=== PATIENT | male | born 1945 | race Caucasian/White ===

== ENCOUNTER 2017-08-18 07:04 | Day surgery (SDC) | payer MEDICARE, BC ==
[~2017-08-18 07:04] MED LIST: Acetaminophen TAB* 325 MG PO PRN; Buffered Lidocaine 0.9% SYRIN* 5 ML/SYR SYRINGE INTRADERM ONE
[2017-08-18] MEDS ORDERED: fentaNYL* 50 MCG/ML 2 ML VIAL (100 MCG VIAL) ONE (08:28)
[2017-08-18] MEDS ORDERED: Midazolam* 1 MG/ML 2 ML VIAL (2 MG) ONE (08:28)
[2017-08-18] MEDS ORDERED: Metoprolol Tartrate IV* 1 MG/ML 5 ML VIAL ONE (08:48)
[2017-08-18 09:30] VITALS: BP 135/77
[2017-08-18] MEDS ORDERED: Povidone Iodine 5% OPTH* 30 ML BTL ONE (11:02)
[2017-08-18] MEDS ORDERED: Lidocaine 2% EPI 1:200000 MPF* 20 ML VIAL ONE (11:02)
[2017-08-18] MEDS ORDERED: Ketorolac 0.5% OPHTH (NF) 0.5 % 5 ML BTL ONE (11:02)
[2017-08-18] MEDS ORDERED: Cyclopentolate 1% OPTH.SOL* 2 ML BTL ONE (11:02)
[2017-08-18] MEDS ORDERED: Proparacaine 0.5% OPHTH.SOL* 15 ML BTL ONE (11:02)
[2017-08-18] MEDS ORDERED: Phenylephrine 2.5% OPTH.SOL* 2 ML BTL ONE (11:02)
[2017-08-18] MEDS ORDERED: acetaZOLAMIDE TAB* 250 MG ONE (11:02)
[2017-08-18] MEDS ORDERED: Neomycin/Polymy/Dex OPTH.SUSP* MAXITROL 0.1% 5 ML ONE (11:02)
[2017-08-18] MEDS ORDERED: Lidocaine 1% MPF* 2 ML VIAL ONE (11:02)
--- NOTE | 2017-08-18 22:18 | OP ---
DATE OF OPERATION: 08/18/17 [facility] DATE OF : [birth year] SURGEON: Parviz Goddard MD PREOPERATIVE DIAGNOSIS: Cataract, right eye. POSTOPERATIVE DIAGNOSIS: Cataract, right eye. OPERATIVE PROCEDURE: Extracapsular cataract extraction with intraocular lens and iStent, right eye. DESCRIPTION OF PROCEDURE: The patient was brought to the operating room after being given 1/2% Alcaine with epinephrine drops in the preoperative area. The eye was prepped and draped in the usual sterile fashion. Sterile drape and eyelid speculum were placed. Again, topical 1/2% Alcaine with epinephrine was given. A paracentesis incision was made at the 9 o'clock position with the No.75 blade. Clear cornea incision 2.2 x 2.2-mm was created at the 12 o'clock position starting at the anterior limbus using the 2.2-mm keratome. The anterior chamber was irrigated with 0.4 mL of 1% non-preservative intracameral lidocaine and filled with DisCoVisc. A capsulorrhexis was completed using the cystotome and the Utrata forceps. Hydrodissection was performed with balanced salt solution. The lens nucleus was removed with the Phacoemulsification handpiece without incident. Cortex was removed with the irrigation-aspiration handpiece. The capsular bag was re-inflated using DisCoVisc and an [id number] 25 implant was inserted with the shooter, followed by an iStent [id number] inserted into the trabecular mesh work at the 3 o'clock position with its shooter. The irrigation-aspiration handpiece was used to remove all residual DisCoVisc. The eye was refilled with balanced salt solution and the wound checked and found to be watertight. Topical Maxitrol drops were given. [id number]/[facility] #: [id number] MTDD
== END 2017-08-18 09:25 | disposition home or self-care (01) ==
LOC: OREAST 07:04
PROVIDERS: ATTEND Specialist
DX: H25.811 Combined forms of age-related cataract, right eye (principal); H40.1131 Primary open-angle glaucoma, bilateral, mild stage; Z87.891 Personal history of nicotine dependence; I25.10 Atherosclerotic heart disease of native coronary artery without angina pectoris; I25.2 Old myocardial infarction; I65.21 Occlusion and stenosis of right carotid artery
CPT/HCPCS: A9270-GY; C1783; J2250; J3010; J3490; V2632

== ENCOUNTER 2017-08-25 06:49 | Day surgery (SDC) | payer MEDICARE, BC ==
[2017-08-25] MEDS ORDERED: Midazolam* 1 MG/ML 2 ML VIAL (2 MG) ONE (07:14)
[2017-08-25] MEDS ORDERED: Neomycin/Polymy/Dex OPTH.SUSP* MAXITROL 0.1% 5 ML ONE (07:27)
[2017-08-25] MEDS ORDERED: Cyclopentolate 1% OPTH.SOL* 2 ML BTL ONE (07:27)
[2017-08-25] MEDS ORDERED: Phenylephrine 2.5% OPTH.SOL* 2 ML BTL ONE (07:27)
[2017-08-25] MEDS ORDERED: acetaZOLAMIDE TAB* 250 MG ONE (07:27)
[2017-08-25] MEDS ORDERED: Lidocaine 1% MPF* 2 ML VIAL ONE (07:27)
[2017-08-25] MEDS ORDERED: Povidone Iodine 5% OPTH* 30 ML BTL ONE (07:27)
[2017-08-25] MEDS ORDERED: Proparacaine 0.5% OPHTH.SOL* 15 ML BTL ONE (07:27)
[2017-08-25] MEDS ORDERED: Lidocaine 2% EPI 1:200000 MPF* 20 ML VIAL ONE (07:27)
[2017-08-25] MEDS ORDERED: Ketorolac 0.5% OPHTH (NF) 0.5 % 5 ML BTL ONE (07:27)
[2017-08-25 08:44] VITALS: BP 133/76
--- NOTE | 2017-08-25 12:46 | OP ---
DATE OF OPERATION: 08/25/2017 - [facility] DATE OF : 1945. SURGEON: Parviz Goddard M.D. PREOPERATIVE DIAGNOSIS: Cataract left eye. POSTOPERATIVE DIAGNOSIS: Cataract left eye. OPERATIVE PROCEDURE: Extracapsular cataract extraction with intraocular lens implant left eye and iStent. DESCRIPTION OF PROCEDURE: The patient was brought to the operating room after being given 1/2% Alcaine with epinephrine drops in the preoperative area. The eye was prepped and draped in the usual sterile fashion. Sterile drape and eyelid speculum were placed. Again, topical 1/2% Alcaine with epinephrine was given. A paracentesis incision was made at the 3 o'clock position with the No.75 blade. Clear cornea incision 2.2 x 2.2-mm was created at the 6 o'clock position starting at the anterior limbus using the 2.2-mm keratome. The anterior chamber was irrigated with 0.4 mL of 1% non-preservative intracameral lidocaine and filled with DisCoVisc. A capsulorrhexis was completed using the cystotome and the Utrata forceps. Hydrodissection was performed with balanced salt solution. The lens nucleus was removed with the Phacoemulsification handpiece without incident. Cortex was removed with the irrigation-aspiration handpiece. The capsular bag was re-inflated using DisCoVisc and an [id number] 24.5 implant was inserted with the shooter, followed by an iStent [id number] inserted into the trabecular meshwork with its shooter at the 9 o'clock position. The irrigation-aspiration handpiece was used to remove all residual DisCoVisc. The eye was refilled with balanced salt solution and the wound checked and found to be watertight. Topical Maxitrol drops were given. [id number]/[facility] #: [id number] [facility]ICAL CENTERChris
== END 2017-08-25 08:46 | disposition home or self-care (01) ==
LOC: OREAST 06:49
PROVIDERS: ATTEND Specialist
DX: H25.812 Combined forms of age-related cataract, left eye (principal); H40.1131 Primary open-angle glaucoma, bilateral, mild stage; Z87.891 Personal history of nicotine dependence; I42.9 Cardiomyopathy, unspecified; Z95.0 Presence of cardiac pacemaker; I10 Essential (primary) hypertension; R00.1 Bradycardia, unspecified; G47.30 Sleep apnea, unspecified
CPT/HCPCS: A9270-GY; C1783; J2250; V2632

== ENCOUNTER 2019-07-18 12:35 | Emergency (ER) | payer MEDICARE, BC ==
--- OUTSIDE RECORDS SUMMARY | 2019-07-18 12:48 | XMS REPORT | Continuity of Care Document ---
:1945 External Reference #:[id number] Author Name Parviz Goddard M.D. Address [address] [place] [address] Care Team Providers Name Role Phone Nomi Us M.D. - Care Team Information [employer] Wms Consultant [phone] Cardiovascular Disease Jasmin Krishnan MD - Internal Care Team Information [employer] Wms Consultant [phone] Medicine Problems Active Problems Provider Date Ocular hypertension Parviz Goddard M.D. Onset: 04/04/2015 Open angle with borderline findings Lobito De Los Santos M.D. Onset: 04/04/2015 Nuclear senile cataract Pk Kim M.D. Onset: 04/04/2015 Gastroesophageal reflux disease Onset: Arthritis Onset: Implantation of cardiac pacemaker Onset: Combined form of senile cataract Parviz Goddard M.D. Onset: 10/24/2015 Bilateral primary open angle glaucoma Parviz Goddard M.D. Onset: 04/30/2017 Presence of intraocular lens Parviz Goddard M.D. Onset: 08/19/2017 Tear film insufficiency Jade Carroll O.D. Onset: 09/08/2017 Epiretinal membrane Jade Carroll O.D. Onset: 09/08/2017 Social History Type Date Description Comments Sex Unknown ETOH Use Occasionally consumes beer Tobacco Use Start: Unknown End: Unknown Patient is a former smoker Recreational Drug Use Denies Drug Use Smoking Status Reviewed: 07/04/19 Patient is a former smoker Allergies, Adverse Reactions, Alerts Description No Known Drug Allergies Medications Active Medications SIG Qnty Indications Ordering Provider Date Artificial Tears as needed rarely Parviz Goddard, 07/03/2019 1.4% MTang Solution Aspir-[address] Multivitamins Unknown Capsules Torsemide Unknown 20mg Tablets Carvedilol Unknown 6.25mg Tablets Pravastatin Sodium Dakota Pro M.D. 40mg Tablets Spironolactone Unknown 25mg Tablets Immunizations Description No Information Available Vital Signs Date Vital Result Comment 06/14/2017 2:14pm BP Systolic 120 mmHg BP Diastolic 70 mmHg Heart Rate 68 /min Respiratory Rate 16 /min 06/07/2017 2:10pm BP Systolic 144 mmHg BP Diastolic 92 mmHg Heart Rate 63 /min Respiratory Rate 15 /min Results Description No Information Available Procedures Description No Information Available Medical Devices Description No Information Available Encounters Description No Information Available Assessments Date Code Description Provider 07/04/2019 H40.1131 Primary open-angle glaucoma, bilateral, Parviz Goddard M.D. mild stage 07/04/2019 Z96.1 Presence of intraocular lens Parviz Goddard M.D. 07/04/2019 H35.371 Puckering of macula, right eye Parviz Goddard M.D. Plan of Treatment 07/04/2019 - Parviz Goddard M.D.H40.1131 Primary open-angle glaucoma, bilateral, mild stageComments:Smoking can increase the risk of developing or worsening any eye related disease, as well as affect your overall health. If you are a smoker, we strongly recommend that you quit.If you are not a smoker, we strongly recommend that you do not start. Your glaucoma is stable at this time.Your eye pressure is within an acceptable range, and your testing does not show any further deterioration at this time. Please continue your treatment.Follow up:6 Month Follow Up DFE/IOP OCT ON Visual Field 30-2 You can expect to have your eyes dilated at yournext visit. If Dr. Goddard orders any additional testing, it may require extra time. We recommend thatyou bring sunglasses, as dilation drops often make you light sensitive until they wear off. We always recommend you bring someone to drive you home if you are uncomfortable driving with your eyes dilated. If you have any questions before your next visit, feel free to call our office at .z96.5 Presence of intraocular lensComments:The artificial lens implants in both eyes appear to be stable at this time.H35.371 Puckering of macula, right eye Functional Status Description No Information Available Mental Status Description No Information Available Referrals Description No Information Available
--- NOTE | 2019-07-18 13:51 | ED ---
Upper Extremity Pain - HPI Summary HPI Summary: The patient is a 74 y/o M presenting to [facility] accompanied by with a chief complaint of left shoulder pain after sustaining a fall onto the shoulder this morning. He reports that he was shoveling and slid but attempted to catch himself without success. He notes he continued to shovel following the accident. Currently, his symptoms are rated /10 in severity. The movement is aggravated with lifting the right arm causing decreased ROM and alleviated with rest and Ibuprofen. He denies head injury, LOC, or lower extremity pain. No anticoagulants. He sees Dr. Rodrigues from orthopedics for hip pain management with next appointment on 07/24/19. PMHx: CHF with pulmonary edema, CAD, HLD, HTN, pacemaker/defibrillator, resting tremors, rotator cuff repair on right. Former smoker, occasional EtOH, no substance use. Medications reviewed. Allergies noted. - History of Current Complaint Chief Complaint: EDExtremityUpper Stated Complaint: LEFT ARM INJURY PER PT Time Seen by Provider: 07/18/19 13:35 Hx Obtained From: Patient Mechanism Of Injury: Fall From A Standing Position Onset/Duration: Started Hours Ago, Still Present Timing: Constant Severity Initially: Moderate Severity Currently: Moderate Pain Location: Shoulder - left Character: Aching Aggravating Factor(s): Movement, Lifting Alleviating Factor(s): Rest, OTC Meds - Ibuprofen Associated Signs & Symptoms: Positive: Other - decreased ROM in left shoulder secondary to pain; Negative: lower extremity pain, head injury, LOC - Allergies/Home Medications Allergies/Adverse Reactions: Allergies Allergy/AdvReac Type Severity Reaction Status Date / Time No Known Allergies Allergy Verified 07/18/19 12:42 PMH/Surg Hx/FS Hx/Imm Hx Endocrine/Hematology History: Denies: Hx Diabetes Cardiovascular History: Reports: Hx Angina, Hx Congestive Heart Failure, Hx Coronary Artery Disease, Hx Hypertension, Hx Pacemaker/ICD, Hx Valvular Heart Disease - LASER SURGERY Respiratory History: Reports: Hx Pulmonary Edema - R/T CONGESTIVE HEART FAILURE GI History: Reports: Hx Gastroesophageal Reflux Disease - ON MEDS USES NEEDED , Other GI Disorders - DIVERTICULI WITH SURGERY History: Denies: Hx Renal Disease Musculoskeletal History: Reports: Hx Arthritis - HIPS SORE Sensory History: Reports: Hx Cataracts, Hx Contacts or Glasses Denies: Hx Hearing Aid Opthamlomology History: Reports: Hx Cataracts, Hx Contacts or Glasses Neurological History: Reports: Other Neuro Impairments/Disorders - FAMILIAR TREMORS BILAT HANDS Psychiatric History: Reports: Hx Anxiety - NONE RECENT, Hx Depression - R/T HEART PROBLEMS NO RECENT PROBLEMS - Surgical History Surgical History: Yes Surgery Procedure, Year, and Place: DIVERTICULITIS WITH RESECTION. EXPLORATORY LAPAROTOMY SMALL BOWEL OBSTRUCTION FROM ADHESIONS. AGE 14 YRS RIGHT HAND POINTER FINGER AMPUTATION. HEART SURGERY [address] [facility] [place]. 2014 PACER REPLACED AND DIFIBULATORY PLAC[address] [facility] [place] Hx Anesthesia Reactions: No - Immunization History Date of Tetanus Vaccine: Unk Date of Influenza Vaccine: None Infectious Disease History: No Infectious Disease History: Denies: Traveled Outside the [place] in Last 30 Days - Family History Known Family History: Negative: Cardiac Disease, Hypertension, Diabetes - Social History Alcohol Use: Rare Alcohol Amount: BEER Hx Substance Use: No Substance Use Type: Reports: None Hx Tobacco Use: Yes Smoking Status (MU): Former Smoker Amount Used/How Often: 20 YR HX 2/2 PPD Review of Systems Positive: Decreased ROM - left shoulder, Other - left shoulder pain; Negative: lower extremity pain Neurological: Other - Negative: head injury, LOC All Other Systems Reviewed And Are Negative: Yes Physical Exam - Summary Physical Exam Summary: Constitutional: Well-developed, Well-nourished, Alert. (-) Distressed Skin: Warm, Dry HENT: Normocephalic; Atraumatic Eyes: Conjunctiva normal Neck: Musculoskeletal ROM normal neck. (-) JVD, (-) Stridor, (-) Tracheal deviation Cardio: Rhythm regular, rate normal, Heart sounds normal; Intact distal pulses; Radial pulses are 2+ and symmetric. (-) Murmur Pulmonary/Chest wall: Effort normal. (-) Respiratory distress, (-) Wheezes, (-) Rales Abd: Soft, (-) tenderness, (-) Distension, (-) Guarding, (-) Rebound Musculoskeletal: No body tenderness or obvious deformity of the left shoulder, Patient has limited ROM in abduction, Radial pulse 2+. (-) Edema Lymph: (-) Cervical adenopathy Neuro: Alert, Oriented x3 Psych: Mood and affect Normal GCS: 15 Triage Information Reviewed: Yes Vital Signs On Initial Exam: Initial Vitals Temp Pulse Resp BP Pulse Ox 98.1 F 56 16 125/69 98 07/18/19 12:38 07/18/19 12:38 07/18/19 12:38 07/18/19 12:38 07/18/19 12:38 Vital Signs Reviewed: Yes - [place] Coma Scale Best Eye Response: 4 - Spontaneous Best Motor Response: 6 - Obeys Commands Best Verbal Response: 5 - Oriented Coma Scale Total: 15 Procedures - Sedation Patient Received Moderate/Deep Sedation with Procedure: No Diagnostics - Vital Signs Vital Signs Temp Pulse Resp BP Pulse Ox 07/18/19 12:38 98.1 F 56 16 125/69 98 - Laboratory Lab Statement: Any lab studies that have been ordered have been reviewed, and results considered in the medical decision making process. - Radiology L Shoulder XR Radiology Interpretation Completed By: Radiologist Summary of Radiographic Findings: Impression: 1. Negative for fracture. 2. Normal acromioclavicular and glenohumeral joint alignment. 3. Moderately severe osteoarthritis at the acromioclavicular joint and mild osteoarthritis at the glenohumeral joint. 4. Negative for calcific tendinopathy or abnormal soft tissue contour. ED physician has reviewed this imaging report. - CT Brain CT CT Interpretation Completed By: Radiologist Summary of CT Findings: Impression: No acute intracranial pathology. ED physician has reviewed this imaging report. Re-Evaluation - Re-Evaluation First Eval Re-Evaluation Time: 14:20 Comment: Patient reports to nurse that he is unsure how long he was on the ground and isn't sure if he had LOC but is now experiencing a HUBBARD, we will order Brain CT Second Eval Re-Evaluation Time: 14:55 Comment: We discussed all results and plan for discharge home. Course/Dx - Course Course Of Treatment: Patient is here with left shoulder pain falling a mechanical fall on snow. Patient initially said he did not lose consciousness but then changed his mind states he lost consciousness and hit his head. Patient had negative CT brain performed. Patient name x-ray of the left shoulder. Patient's symptoms are consistent with a rotator cuff injury. Patient was placed in a sling and will follow up with his orthopedic surgeon next week at his already scheduled appointment. - Diagnoses Provider Diagnoses: Injury of left shoulder, Fall Discharge ED - Sign-Out/Discharge Documenting (check all that apply): Patient Departure - Patient will be discharged home. - Discharge Plan Condition: Stable Disposition: HOME Patient Education Materials: Rotator Cuff Injury (ED), Shoulder Sprain (ED), Fall Prevention (ED) Referrals: Jasmin Krishnan MD [Primary Care Provider] - 3 Days Shae Rodrigues MD [Medical Doctor] - 07/24/19 Additional Instructions: Follow up with Dr. Rodrigues as you already have scheduled. Use sling as needed for comfort. Take Ibuprofen or Tylenol for pain. Return to the emergency department for any new or worsening symptoms. - Billing Disposition and Condition Condition: STABLE Disposition: Home - Attestation Statements Document Initiated by Rocco: Yes Documenting Scribe: Sunita De La Cruz Provider For Whom Rocco is Documenting (Include Credential): Dr. Soy Jay MD Scribe Attestation: Sunita Bowles scribed for Dr. Soy Jay MD on 07/18/19 at 1705. Scribe Documentation Reviewed: Yes Provider Attestation: The documentation as recorded by the Sunita gloria accurately reflects the service I personally performed and the decisions made by me, Dr. Soy Jay MD Status of Scribe Document: Viewed
[2019-07-18 15:30] VITALS: BP 122/76
== END 2019-07-18 15:28 | disposition home or self-care (01) ==
LOC: ED 12:35
DX: M25.512 Pain in left shoulder (principal); W00.9XXA Unspecified fall due to ice and snow, initial encounter; Y92.9 Unspecified place or not applicable; Z87.891 Personal history of nicotine dependence; I25.10 Atherosclerotic heart disease of native coronary artery without angina pectoris; Z95.0 Presence of cardiac pacemaker; F41.9 Anxiety disorder, unspecified; I50.9 Heart failure, unspecified
CPT/HCPCS: 70450; 99282

== ENCOUNTER 2019-09-29 08:04 | Inpatient (IN) | payer MEDICARE, BC ==
--- NOTE | 2019-09-26 10:18 | HP ---
AMENDED REPORT NOW INCLUDES DESIGNATED COSIGNER - ESIGNED BEFORE ADJUSTMENTS PREOPERATIVE HISTORY AND PHYSICAL: DATE OF SURGERY/ADMISSION: 09/29/19 DATE OF OFFICE VISIT/ENCOUNTER: 09/22/19 ATTENDING SURGEON: Shae Rodrigues MD * (DICTATED BY NURA GAMEZ) GEOTHERMAL POWERPLANT MECHANIC HELPER: Dr. Us. PROCEDURE: Right total hip arthroplasty. HISTORY OF PRESENT ILLNESS: Mr. 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 He has failed conservative treatment and has elected to proceed with a right total hip arthroplasty. He has been cleared by his flat sheet maker, Dr. Us, with a [id number] risk. The patient has not taken his ibuprofen since the first of the month, September. PAST MEDICAL HISTORY: 1. Hypercholesterolemia. 2. Hypertension. 3. History of arrhythmia. 4. History of diverticulitis. 5. Sleep apnea, no CPAP. 6. Essential tremor. PAST SURGICAL HISTORY: 1. Pacemaker placement. 2. Bowel surgery, a sigmoid resection. 3. Right rotator cuff repair. The patient reports experiencing hallucinations with anesthesia in the past. CURRENT MEDICATIONS: 1. Aspirin 81 mg daily. This has been on hold. 2. Carvedilol 6.25 mg 1 tab q.12 hours. 3. Colace 100 mg daily p.r.n. 4. Ibuprofen 200 mg, 400 to 600 mg every 6 hours. This has been on hold. 5. Multivitamin complete 1 tab daily, on hold. 6. Pravastatin sodium 40 mg daily. 7. Spironolactone 25 mg daily. 8. Torsemide 10 mg every other day. ALLERGIES: No known drug allergies. FAMILY MEDICAL HISTORY: Hypertension, cancer, Alzheimer's. SOCIAL HISTORY: The patient lives with his spouse. He is retired. He is a former smoker. He quit approximately 30 years ago. He denies recreational drug use. He drinks alcohol on rare occasion. REVIEW OF SYSTEMS: Positive for essential tremor. Otherwise, negative for general, cephalic, cardiovascular, respiratory, GI/, other musculoskeletal, integumentary, endocrine, other neurologic, and hematologic symptoms. Infectious disease: Negative for history of MRSA, hepatitis C, HIV. PHYSICAL EXAMINATION GENERAL: Well-developed, well-nourished 74-year-old male, in no acute distress. VITAL SIGNS: Height 5 feet 11 inches, weight 207 pounds. Pulse rate 80, blood pressure 120/78. HEENT: Normocephalic, atraumatic. Pupils are equal, round, and reactive to light and accommodation. Extraocular movements are intact. Throat is clear. NECK: Supple. No palpable lymph nodes. PULMONARY: Lungs are clear to auscultation bilaterally. No wheezes, rales, or rhonchi. CARDIOVASCULAR: Regular rate and rhythm. S1, S2. No murmurs, rubs, or gallops. ABDOMEN: Positive bowel sounds, soft, nontender. MUSCULOSKELETAL: On exam of the right lower extremity, skin is intact. There are no open wounds or abrasions. The patient ambulates with a mildly antalgic gait favoring the right hip. He has hip flexion to 90 degrees with 0 degrees of internal rotation, 20 degrees of external rotation with severe groin pain. Distally neurovascularly intact. He has a 5/5 ankle dorsiflexion and plantar flexion strength. Full sensation to light touch in all nerve distributions and 2+ palpable dorsalis pedis pulse. NEUROLOGIC: Alert and oriented x3. Cranial nerves II through XII are intact. Sensation is intact to light touch. IMAGING STUDIES: X-rays of the right hip show end-stage osteoarthritis. ASSESSMENT AND PLAN: Mr. Murray is a 74-year-old male with end-stage osteoarthritis of the right hip. He has failed conservative treatment and has elected to proceed with a right total hip arthroplasty. The surgery is scheduled for 09/29/[address] Rodrigues discussed the risks and benefits of the surgery at today's visit and all of his questions were answered. He will follow up with Dr. Rodrigues 2 weeks after surgery. NURA GAMEZ [id number]/[facility] #: [id number] TRACY
[~2019-09-29 08:04] MED LIST changes: -Acetaminophen TAB* 325 MG PO PRN; -Buffered Lidocaine 0.9% SYRIN* 5 ML/SYR SYRINGE INTRADERM ONE; +Buffered Lidocaine 1% SYRIN* 1 ML/SYRINGE INTRADERM ONE; +Dexamethasone TAB* 4 MG PO ONE; +DiMENhydriNATE IV* 50 MG/ML VIAL IV PUSH PRN; +Famotidine IV* 10 MG/ML 2 ML (20 mg) IV ONE; +HYDROmorphone INJ1* 1 MG/ML SYRINGE IV PRN; +Lactated Ringers 1000 ML Bag* 1,000 ML IV SCH; +Naloxone* 0.4 MG/ML 1 ML VIAL IV PRN; +Ondansetron ODT TAB* 4 MG PO ONE; +PROCHLORPERAZINE INJ 5 MG/ML 2 ML VIAL IV PRN; +Tranexamic Acid 1,000 MG in NS 0.9% 50 ML* (outpatient use) IV SCH; +oxyCODONE TAB* 5 MG TAB PO PRN
[2019-09-29] MEDS ORDERED: Ondansetron ODT TAB* 4 MG ONE (08:07)
[2019-09-29] MEDS ORDERED: Famotidine IV* 10 MG/ML 2 ML (20 mg) ONE (08:08)
[2019-09-29] MEDS ORDERED: ceFAZolin 2 GM in NS PREMIX(*) 2 GM/100 ML BAG IVPB ONE (08:08)
[2019-09-29] MEDS ORDERED: Dexamethasone TAB* 4 MG ONE (08:08)
--- OUTSIDE RECORDS SUMMARY | 2019-09-29 08:08 | XMS REPORT | Continuity of Care Document ---
:1945 External Reference #:[id number] Author Name Nomi Us M.D. 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 Onset: region and thigh Social History Type Date Description Comments Sex Unknown Tobacco Use Start: Unknown End: Former Cigarette Smoker Unknown Smoking Status Reviewed: 08/16/19 Former Cigarette Smoker ETOH Use Occasionally consumes alcohol Tobacco Use Start: Unknown End: Patient is a former Unknown smoker Recreational Drug Use Denies Drug Use Exercise Type/Frequency Exercises regularly walks 2 miles a day, then works out at the gym for 45 minutes Allergies, Adverse Reactions, Alerts Description No Known Drug Allergies Medications Active Medications SIG Qnty Indications Ordering Date Provider Torsemide 1 by mouth 90tabs I42.9 Nomi S. 08/17/2019 10mg Tablets every day Ana Us Carvedilol 1 tab by mouth 180tabs I42.9 Nomi S. 09/23/2015 6.25mg Tablets every 12 hours Ana Us Spironolactone take 1 tablet 90tabs I42.9 Qutayb S. 08/26/2015 25mg Tablets by mouth every Ana Us other day (alternating with spironolactone) Pravastatin Sodium 1 tablet daily Unknown 40mg at bedtime Tablets Aspir-Low 1 by mouth Unknown 81mg Tablets DR every day Multi Complete 1 PO daily Unknown Capsules Colace 1 by mouth Unknown 100mg Capsules daily prn Ibuprofen 200 400-600mg every Unknown 200mg Tablets 6 hours as needed for pain. History Medications Torsemide 1/2 by mouth every I42.9 Qutabanner S. 07/24/2019 - 20mg other day (opposite Ana Us 08/17/2019 Tablets of spirolactone) Torsemide 2 tablets by mouth 90tabs I42.9 Qutayb S. 03/08/2019 - 10mg every other day Ana Us 07/24/2019 Tablets (alternating with spironolactone) Immunizations Description No Information Available Vital Signs Date Vital Result Comment 09/01/2019 3:53pm Height 71 inches 5'11" Weight 206.00 lb per pt Heart Rate 76 /min left radial BP Systolic Sitting 134 mmHg Lue, reg cuff BP Diastolic Sitting 76 mmHg Lue, reg cuff BMI (Body Mass Index) 28.7 kg/m2 Ejection Fraction 30%-35% echocardiogram 08/25/18 08/16/2019 8:23am Height 71 inches 5'11" Weight 208.00 lb Heart Rate 88 /min BP Systolic 124 mmHg BP Diastolic 78 mmHg Respiratory Rate 18 /min Pain Level 5 BMI (Body Mass Index) 29.0 kg/m2 Results Description No Information Available Procedures Date Code Description Status 09/01/2019 79337 EKG Tracing & Interpretation Completed 07/24/2019 94955 Interrogation Device Eval Remote Up To 30 Days Completed Analysis,Rev,RP 07/24/2019 38167 Interrogation Device Eval Remote Up To 30 Days Completed Analysis,Rev,RP 07/24/2019 31987 Icd Eval Sing,Dual,Multi Lead Remote Recpt Transm Tech Completed Rev Tech S 07/24/2019 73973 Icd Eval Sing,Dual,Multi Lead Remote Recpt Transm Tech Completed Rev Tech S 07/24/2019 89270 Icd Check Remote Up To 90 Days Single,Dual,Multiple Completed Lead 07/24/2019 38422 Icd Check Remote Up To 90 Days Single,Dual,Multiple Completed Lead 06/08/2019 74630 Icd Eval With Iterative Adjustmt Multiple Lead System Completed 06/08/2019 56353 Interrogation Implant Cardiovasc Monitor System Incl Completed Analysis Int 05/16/2019 20076 EKG Tracing & Interpretation Completed 04/24/2019 89446 Interrogation Device Eval Remote Up To 30 Days Completed Analysis,Rev,RP 04/24/2019 74684 Interrogation Device Eval Remote Up To 30 Days Completed Analysis,Rev,RP 04/24/2019 77708 Icd Eval Sing,Dual,Multi Lead Remote Recpt Transm Tech Completed Rev Tech S 04/24/2019 73670 Icd Eval Sing,Dual,Multi Lead Remote Recpt Transm Tech Completed Rev Tech S 04/24/2019 46246 Icd Check Remote Up To 90 Days Single,Dual,Multiple Completed Lead 04/24/2019 01328 Icd Check Remote Up To 90 Days Single,Dual,Multiple Completed Lead 10/29/2015 [id number] Colonoscopy Completed Medical Devices Description No Information Available Encounters Type Date Location Provider Dx Diagnosis [facility] Visit [facility], M25.551 Pain in right hip 8:30a at [facility] M16.11 Unilateral primary osteoarthritis, right hip Office Visit 07/24/2019 1:00p [facility], M25.551 Pain in right at [facility] hip M16.11 Unilateral primary osteoarthritis, right hip Office Visit 05/16/2019 [facility] I42.9 Cardiomyopathy, 3:20p Cardiology Ana Us unspecified 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 09/01/2019 Z95.810 Presence of automatic (implantable) Nomi Us M.D. cardiac defibrillator 09/01/2019 I10 Essential (primary) hypertension Nomi Us M.D. 09/01/2019 E78.5 Hyperlipidemia, unspecified Nomi Us M.D. 09/01/2019 I77.819 Aortic ectasia, unspecified site Nomi Us M.D. 09/01/2019 Z01.810 Encounter for preprocedural Nomi Us M.D. cardiovascular examination 08/16/2019 M25.551 Pain in right hip Shae Rodrigues M.D. 08/16/2019 M16.11 Unilateral primary osteoarthritis, Shae Rodrigues M.D. right hip 07/24/2019 I42.9 Cardiomyopathy, unspecified Nomi Us M.D. 07/24/2019 M25.551 Pain in right hip Shae Rodrigues M.D. 07/24/2019 I42.9 Cardiomyopathy, unspecified Remote Device Checks 07/24/2019 Z95.810 Presence of automatic (implantable) Nomi Us M.D. cardiac defibrillator 07/24/2019 M16.11 Unilateral primary osteoarthritis, Shae Rodrigues M.D. right hip 07/24/2019 Z95.810 Presence of automatic (implantable) Remote Device Checks cardiac defibrillator 07/24/2019 I50.22 Chronic systolic (congestive) heart Nomi Us M.D. failure 07/24/2019 I50.22 Chronic systolic (congestive) heart Remote Device Checks failure 06/08/2019 I42.9 Cardiomyopathy, unspecified Nomi Us M.D. 06/08/2019 I42.9 Cardiomyopathy, unspecified Ica Pacer Schedule 06/08/2019 Z95.810 Presence of automatic (implantable) Nomi Us M.D. cardiac defibrillator 06/08/2019 Z95.810 Presence of automatic (implantable) Ica Pacer Schedule cardiac defibrillator 06/08/2019 I50.22 Chronic systolic (congestive) heart Nomi Us M.D. failure 06/08/2019 I50.22 Chronic systolic (congestive) heart Ica Pacer Schedule failure 05/16/2019 I42.9 Cardiomyopathy, unspecified Nomi Us M.D. 05/16/2019 Z95.810 Presence of automatic (implantable) Nomi Us M.D. cardiac defibrillator 05/16/2019 I10 Essential (primary) hypertension Nomi Us M.D. 05/16/2019 E78.5 Hyperlipidemia, unspecified Nomi Us M.D. 05/16/2019 I77.819 Aortic ectasia, unspecified site Nomi Us M.D. 04/24/2019 I42.9 Cardiomyopathy, unspecified Nomi Us M.D. 04/24/2019 I42.9 Cardiomyopathy, unspecified Remote Device Checks 04/24/2019 Z95.810 Presence of automatic (implantable) Nomi Us M.D. cardiac defibrillator 04/24/2019 Z95.810 Presence of automatic (implantable) Remote Device Checks cardiac defibrillator Plan of Treatment Future Appointment(s):09/15/2019 1:20 pm - Tarsha Morrison NP at [facility]09/08/2019 3:00 pm - Ica ECHO Schedule at [facility] 10:30 am - Shae Rodrigues M.D. at [facility] at [id number]/29/2019 10:30 am - Shae Rodrigues M.D. at [facility] at [id number]/01/2019 - Nomi Us M.D.I42.9 Cardiomyopathy, unspecifiedNew Orders: Echocardiogram, Ordered: 09/01/19Follow up:8 months ov with meZ95.810 Presence of automatic (implantable) cardiac [id number] Essential (primary) kwmmegkbnzyzE54.5 Hyperlipidemia, nhnmqeiihguL95.819 Aortic ectasia, unspecified siteZ01.810 Encounter for preprocedural cardiovascular examinationFollow up:ov PRESS HAND when echo is done for final clearance Functional Status Description No Information Available Mental Status Description No Information Available Referrals Description No Information Available
--- OUTSIDE RECORDS SUMMARY | 2019-09-29 08:08 | XMS REPORT | Continuity of Care Document ---
:1945 External Reference #:[id number] Author Name Shae Rodrigues M.D. 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 Onset: region and thigh Social History Type Date Description Comments Sex Unknown Tobacco Use Start: Unknown End: Former Cigarette Smoker Unknown Smoking Status Reviewed: 09/22/19 Former Cigarette Smoker ETOH Use Occasionally consumes [...] Provider Torsemide 1 by mouth 90tabs I42.9 Qutaybeh S. 08/17/2019 10mg Tablets every other day Ana Us Carvedilol 1 tab by mouth 180tabs I42.9 Qutaybeh S. 09/23/2015 6.25mg Tablets every 12 hours Ana Us Spironolactone take 1 tablet 90tabs I42.9 Tarsha Morrison, 08/26/2015 25mg Tablets by mouth every SOFTWARE ENGINEER ADVISOR day Pravastatin Sodium 1 tablet daily Unknown 40mg at bedtime Tablets Aspir-Low 1 by mouth Unknown 81mg Tablets DR every day (on hold) Multi Complete 1 PO daily (on Unknown Capsules hold) Colace 1 by mouth Unknown 100mg Capsules daily prn Ibuprofen 200 400-600mg every Unknown 200mg Tablets 6 hours as needed for pain. History Medications Torsemide 1/2 by mouth every I42.9 Qutaybeh S. 07/24/2019 - 20mg other day (opposite of Ana Us 08/17/2019 Tablets spirolactone) Immunizations Description No Information Available Vital Signs Date Vital Result Comment 09/22/2019 11:09am Height 71 inches 5'11" Weight 207.50 lb Heart Rate 80 /min BP Systolic 120 mmHg BP Diastolic 78 mmHg Respiratory Rate 18 /min Body Temperature 96.1 F Pain Level 5 BMI (Body Mass Index) 28.9 kg/m2 09/15/2019 12:52pm Height 71 inches 5'11" Weight 206.44 lb home weight Heart Rate 82 /min BP Systolic Sitting 134 mmHg ule reg cuff BP Diastolic Sitting 76 mmHg ule reg cuff BP Systolic Standing 136 mmHg ule reg cuff BP Diastolic Standing 76 mmHg ule reg cuff BMI (Body Mass Index) 28.8 kg/m2 Ejection Fraction 30-35% Echo 09/12/19 Results Test Acquired Date Facility Test Result H/L Range Note Basic Metabolic 09/15/2019 [facility] Sodium 139 mmol/L Normal 135-145 [address] [place] [address] [phone] Potassium 5.0 mmol/L Normal 3.5-5.0 Chloride 105 mmol/L Normal 101-111 Co2 Carbon Dioxide 29 mmol/L Normal 22-32 Anion Gap 5 mmol/L Normal 2-11 Glucose 94 mg/dL Normal 70-100 Blood Urea Nitrogen 25 mg/dL High 6-24 Creatinine 1.00 mg/dL Normal 0.67-1.17 BUN/Creatinine Ratio 25.0 High 8-20 Calcium 9.9 mg/dL Normal 8.6-10.3 Egfr Non- 73.5 >60 Egfr 88.9 >60 1 Laboratory test 09/15/2019 [facility] B-Type 302 pg/mL High <= [address] [place] [address] Peptide BNP [phone] 1 Because ethnic data is not always readily available, this report includes an eGFR for both -Americans and non- Americans. The National Kidney Disease Education Program (NKDEP) does not endorse the use of the MDRD equation for patients that are not between the ages of 18 and 70, are , have extremes of body size, muscle mass, or nutritional status, or are non- or non-. According to the National Kidney Foundation, irrespective of diagnosis, the stage of the disease is based on the level of kidney function: Stage Description GFR(mL/min/1.73 m(2)) 1 Kidney damage with normal or decreased GFR 90 2 Kidney damage with mild decrease in GFR 60-89 3 Moderate decrease in GFR 30-59 4 Severe decrease in GFR 15-29 5 Kidney failure <15 (or dialysis) Procedures Date Code Description Status 09/15/2019 71962 EKG Tracing & Interpretation Completed 09/12/2019 76441 ECHO Transthoracic, Real-Time 2D With Doppler And Color Completed Flow 09/01/2019 79463 EKG Tracing & Interpretation Completed 07/24/2019 84512 Interrogation Device Eval Remote Up To 30 Days Completed Analysis,Rev,RP 07/24/2019 84818 Interrogation Device Eval Remote Up To 30 Days Completed Analysis,Rev,RP 07/24/2019 23432 Icd Eval Sing,Dual,Multi Lead Remote Recpt Transm Tech Completed Rev Tech S 07/24/2019 40522 Icd Eval Sing,Dual,Multi Lead Remote Recpt Transm Tech Completed Rev Tech S 07/24/2019 61346 Icd Check Remote Up To 90 Days Single,Dual,Multiple Completed Lead 07/24/2019 35002 Icd Check Remote Up To 90 Days Single,Dual,Multiple Completed Lead 06/08/2019 73432 Icd Eval With Iterative Adjustmt Multiple Lead System Completed 06/08/2019 35118 Interrogation Implant Cardiovasc Monitor System Incl Completed Analysis Int 05/16/2019 00061 EKG Tracing & Interpretation Completed 04/24/2019 54058 Interrogation Device Eval Remote Up To 30 Days Completed Analysis,Rev,RP 04/24/2019 34076 Interrogation Device Eval Remote Up To 30 Days Completed Analysis,Rev,RP 04/24/2019 02231 Icd Eval Sing,Dual,Multi Lead Remote Recpt Transm Tech Completed Rev Tech S 04/24/2019 45773 Icd Eval Sing,Dual,Multi Lead Remote Recpt Transm Tech Completed Rev Tech S 04/24/2019 60889 Icd Check Remote Up To 90 Days Single,Dual,Multiple Completed Lead 04/24/2019 10893 Icd Check Remote Up To 90 Days Single,Dual,Multiple Completed Lead 10/29/2015 01704816 Colonoscopy Completed Medical Devices Description No Information Available Encounters Type Date Location Provider Dx Diagnosis Office Visit 09/15/2019 [facility] Tarsha Morrison, I42.9 Cardiomyopathy, 1:20p SOFTWARE ENGINEER ADVISOR unspecified I27.20 Pulmonary hypertension, unspecified Z95.0 Presence of cardiac pacemaker Z01.818 Encounter for other preprocedural examination Office Visit 09/01/2019 [facility] Nomi Gamez I42.9 Cardiomyopathy, 4:00p Cardiology Ana Us unspecified 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 09/22/2019 M16.11 Unilateral primary osteoarthritis, Shae Rodrigues M.D. right hip 09/15/2019 Z95.810 Presence of automatic (implantable) Nomi Us M.D. cardiac defibrillator 09/15/2019 I42.9 Cardiomyopathy, unspecified Tarsha Morrison, SOFTWARE ENGINEER ADVISOR 09/15/2019 I27.20 Pulmonary hypertension, unspecified Tarsha Thbarak, SOFTWARE ENGINEER ADVISOR 09/15/2019 Z95.0 Presence of cardiac pacemaker Tarsha Morrison SOFTWARE ENGINEER ADVISOR 09/15/2019 Z01.818 Encounter for other preprocedural Tarsha Morrison, SOFTWARE ENGINEER ADVISOR examination 09/12/2019 I42.9 Cardiomyopathy, unspecified [facility]ca ECHO Schedule 09/12/2019 Z95.810 Presence of automatic (implantable) Ica ECHO Schedule cardiac defibrillator 09/12/2019 I10 Essential (primary) hypertension Ica ECHO Schedule 09/12/2019 I77.819 Aortic ectasia, unspecified site Ica ECHO Schedule 09/01/2019 I42.9 Cardiomyopathy, unspecified Nomi Us M.D. [...] Checks 04/24/2019 Z95.810 Presence of automatic (implantable) oNmi Us M.D. cardiac defibrillator 04/24/2019 Z95.810 Presence of automatic (implantable) Remote Device Checks cardiac defibrillator Plan of Treatment Future Appointment(s):10/16/2019 10:15 am - Shae Rodrigues M.D. at [facility] at [id number]/02/2019 2:00 pm - Tarsha Morrison NP at [facility]09/29/2019 10:30 am - Shae Rodrigues M.D. at [facility] at [id number]/22/2019 - Shae Rodrigues M.D.M25.551 Pain in right hipFollow up:Follow up: 2 weeks after xzjhoqeS39.11 Unilateral primary osteoarthritis, right hip Functional Status Description No Information Available Mental Status Description No Information Available Referrals Description No Information Available
--- OUTSIDE RECORDS SUMMARY | 2019-09-29 08:08 | XMS REPORT | Continuity of Care Document ---
:1945 External Reference #:[id number] Author Name Shae Rodrigues M.D. 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 07/24/2019 20mg Tablets every other day Ana Us (opposite of spirolactone) Carvedilol 1 tab by mouth 180tabs I42.9 Qutaybeh S. 09/23/2015 6.25mg Tablets every 12 hours Ana Us Spironolactone take 1 tablet 90tabs I42.9 Qutaybeh S. 08/26/2015 25mg Tablets by mouth every Ana Us other day (alternating with spironolactone) Pravastatin Sodium 1 tablet daily Unknown 40mg at bedtime Tablets Aspir-Low 1 by mouth Unknown 81mg Tablets DR every day Multi Complete 1 PO daily Unknown Capsules Colace 1 by mouth Unknown 100mg Capsules daily prn History Medications Torsemide 2 tablets by mouth 90tabs I42.9 Qutaybeh S. 03/08/2019 - every other day Ana Us 07/24/2019 10mg Tablets (alternating with spironolactone) Immunizations Description No Information Available Vital Signs Date Vital Result Comment 08/16/2019 8:23am Height 71 inches 5'11" Weight 208.00 lb Heart Rate 88 /min BP Systolic 124 mmHg BP Diastolic 78 mmHg Respiratory Rate 18 /min Pain Level 5 BMI (Body Mass Index) 29.0 kg/m2 07/24/2019 1:37pm Height 71 inches 5'11" Weight 207.00 lb Heart Rate 65 /min BP Systolic 132 mmHg BP Diastolic 88 mmHg Respiratory Rate 18 /min Body Temperature 98.1 F BMI (Body Mass Index) 28.9 kg/m2 Results Description No Information Available Procedures Date Code Description Status 07/24/2019 56794 Interrogation Device Eval Remote Up To 30 Days Completed Analysis,Rev,RP 07/24/2019 82070 Interrogation Device Eval Remote Up To 30 Days Completed Analysis,Rev,RP 07/24/2019 15028 Icd Eval Sing,Dual,Multi Lead Remote Recpt Transm Tech Completed Rev Tech S 07/24/2019 51507 Icd Eval Sing,Dual,Multi Lead Remote Recpt Transm Tech Completed Rev Tech S 07/24/2019 82929 Icd Check Remote Up To 90 Days Single,Dual,Multiple Completed Lead 07/24/2019 88459 Icd Check Remote Up To 90 Days Single,Dual,Multiple Completed Lead 06/08/2019 49518 Interrogation Implant Cardiovasc Monitor System Incl Completed Analysis Int 06/08/2019 82506 Icd Eval With Iterative Adjustmt Multiple Lead System Completed 05/16/2019 48137 EKG Tracing & Interpretation Completed 04/24/2019 66436 Interrogation Device Eval Remote Up To 30 Days Completed Analysis,Rev,RP 04/24/2019 50247 Interrogation Device Eval Remote Up To 30 Days Completed Analysis,Rev,RP 04/24/2019 80985 Icd Eval Sing,Dual,Multi Lead Remote Recpt Transm Tech Completed Rev Tech S 04/24/2019 34638 Icd Eval Sing,Dual,Multi Lead Remote Recpt Transm Tech Completed Rev Tech S 04/24/2019 70796 Icd Check Remote Up To 90 Days Single,Dual,Multiple Completed Lead 04/24/2019 13837 Icd Check Remote Up To 90 Days Single,Dual,Multiple Completed Lead 10/29/2015 87961628 Colonoscopy Completed Medical Devices Description No Information Available Encounters Type Date Location Provider Dx Diagnosis Office Visit 07/24/2019 [facility] Shae Rodrigues, M25.551 Pain in right hip 1:00p at [place] Ana M16.11 Unilateral primary osteoarthritis, right hip Office Visit 05/16/2019 [facility] Nomi Gamez I42.9 Cardiomyopathy, 3:20p Cardiology Ana Us unspecified Z95.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
--- OUTSIDE RECORDS SUMMARY | 2019-09-29 08:08 | XMS REPORT | Continuity of Care Document ---
:1945 External Reference #:[id number] Author Name Tarsha Morrison NP (transmitted by agent of provider Franci Valdes) Address [address] [place], [place] [address] [address] Care Team Providers Name Role Phone Jasmin Krishnan MD - Internal Care Team Information [facility] [phone] Medicine Problems Active Problems Provider Date Disturbance in sleep behavior Emely Shaikh MD Onset: 01/03/2016 Cardiomyopathy, unspecified Emely Shaikh MD Onset: 01/03/2016 Morbid obesity Emely Shaikh MD Onset: 01/03/2016 Obstructive sleep apnea syndrome Emely Shaikh MD Onset: 03/17/2016 Localized, primary osteoarthritis of the pelvic Shaesharifa Rodrigues M.D. Onset: region and thigh Social History Type Date Description Comments Sex Unknown Tobacco Use Start: Unknown End: Former Cigarette Smoker Unknown Smoking Status Reviewed: 09/15/19 Former Cigarette Smoker ETOH Use Occasionally consumes [...] I42.9 Qutaybeh S. 08/17/2019 10mg Tablets every day Ana Us Carvedilol 1 tab by mouth 180tabs I42.9 Qutaybeh S. 09/23/2015 6.25mg Tablets every 12 hours Ana Us Spironolactone take 1 tablet 90tabs I42.9 Tarsha Morrison, 08/26/2015 25mg Tablets by mouth every EXPEDITION SUPERVISOR day Pravastatin Sodium 1 tablet daily Unknown [...] Available Vital Signs Date Vital Result Comment 09/15/2019 12:52pm Height 71 inches 5'11" Weight 206.44 lb home weight Heart Rate 82 /min BP Systolic Sitting 134 mmHg ule reg cuff BP Diastolic Sitting 76 mmHg ule reg cuff BP Systolic Standing 136 mmHg ule reg cuff BP Diastolic Standing 76 mmHg ule reg cuff BMI (Body Mass Index) 28.8 kg/m2 Ejection Fraction 30-35% Echo 09/12/19 09/01/2019 3:53pm Height 71 inches 5'11" Weight 206.00 lb per pt Heart Rate 76 /min left radial BP Systolic Sitting 134 mmHg Lue, reg cuff BP Diastolic Sitting 76 mmHg Lue, reg cuff BMI (Body Mass Index) 28.7 kg/m2 Ejection Fraction 30%-35% echocardiogram 08/25/18 Results Description No Information Available Procedures Date Code Description Status 09/15/2019 72116 EKG Tracing & Interpretation Completed 09/12/2019 54867 ECHO Transthoracic, Real-Time 2D With Doppler And Color Completed Flow 09/01/2019 62188 EKG Tracing & Interpretation Completed 07/24/2019 63833 Interrogation Device Eval Remote Up To 30 Days Completed Analysis,Rev,RP 07/24/2019 11161 Interrogation Device Eval Remote Up To 30 Days Completed Analysis,Rev,RP 07/24/2019 60474 Icd Eval Sing,Dual,Multi Lead Remote Recpt Transm Tech Completed Rev Tech S 07/24/2019 40961 Icd Eval Sing,Dual,Multi Lead Remote Recpt Transm Tech Completed Rev Tech S 07/24/2019 13617 Icd Check Remote Up To 90 Days Single,Dual,Multiple Completed Lead 07/24/2019 83359 Icd Check Remote Up To 90 Days Single,Dual,Multiple Completed Lead 06/08/2019 99584 Icd Eval With Iterative Adjustmt Multiple Lead System Completed 06/08/2019 89501 Interrogation Implant Cardiovasc Monitor System Incl Completed Analysis Int 05/16/2019 26156 EKG Tracing & Interpretation Completed 04/24/2019 56909 Interrogation Device Eval Remote Up To 30 Days Completed Analysis,Rev,RP 04/24/2019 50097 Interrogation Device Eval Remote Up To 30 Days Completed Analysis,Rev,RP 04/24/2019 80564 Icd Eval Sing,Dual,Multi Lead Remote Recpt Transm Tech Completed Rev Tech S 04/24/2019 27092 Icd Eval Sing,Dual,Multi Lead Remote Recpt Transm Tech Completed Rev Tech S 04/24/2019 76947 Icd Check Remote Up To 90 Days Single,Dual,Multiple Completed Lead 04/24/2019 89056 Icd Check Remote Up To 90 Days Single,Dual,Multiple Completed Lead 10/29/2015 89502328 Colonoscopy Completed Medical Devices Description No Information Available Encounters Type Date Location Provider Dx Diagnosis Office Visit 09/01/2019 [facility] Nomi S. I42.9 Cardiomyopathy , 4:00p Ana Us unspecified Z95.810 Presence of automatic (implantable) cardiac defibrillator I10 Essential (primary) hypertension E78.5 Hyperlipidemia, unspecified I77.819 Aortic ectasia, unspecified site Z01.810 Encounter for preprocedural cardiovascular examination Office Visit 08/16/2019 8:30a [facility] Unilateral primary osteoarthritis, right hip Office Visit 07/24/2019 1:00p Taran Rodrigues M25.551 Pain in right at [facility].D. hip M16.11 Unilateral primary osteoarthritis, right hip Office Visit 05/16/2019 [facility]her S. I42.9 Cardiomyopathy, 3:20[facility] Ana Us unspecified Z95.810 Presence of automatic (implantable) cardiac defibrillator I10 Essential (primary) hypertension E78.5 Hyperlipidemia, unspecified I77.819 Aortic ectasia, unspecified site Assessments Date Code Description Provider 09/15/2019 I42.9 Cardiomyopathy, unspecified Tarsha Morrison, EXPEDITION SUPERVISOR 09/15/2019 I27.20 Pulmonary hypertension, unspecified Tarsha Morrison, EXPEDITION SUPERVISOR 09/15/2019 Z95.0 Presence of cardiac pacemaker Tarsha Morrison NP 09/15/2019 Z01.818 Encounter for other preprocedural Tarsha Morrison NP examination 09/12/2019 I42.9 Cardiomyopathy, unspecified Ica ECHO Schedule 09/12/2019 Z95.810 Presence of automatic (implantable) Ica ECHO Schedule cardiac defibrillator 09/12/2019 I10 Essential (primary) hypertension Ica ECHO Schedule 09/12/2019 I77.819 Aortic ectasia, unspecified site Ica ECHO Schedule 09/01/2019 I42.9 Cardiomyopathy, unspecified Nomi Us M.D. 09/01/2019 Z95.810 Presence of automatic (implantable) Nomi sU M.D. cardiac defibrillator 09/01/2019 I10 Essential (primary) [...] Checks cardiac defibrillator Plan of Treatment Future Appointment(s):11/02/2019 2:00 pm - Tarsha Morrison NP at [facility]09/22/2019 10:30 am - Shae Rodrigues M.D. at [facility] at [id number]/29/2019 10:30 am - Shae Rodrigues M.D. at [facility] at [id number] - Tarsha Morrison NPI42.9 Cardiomyopathy, unspecifiedNew Labs:Basic Metabolic Panel, Ordered: 09/15/19B-Type Natriuretic Peptide BNP, Ordered: 09/15Follow up:follow up in 6 weeks for medication titration.Recommendations: Please start taking Spironolactone 25mg by mouth daily. Reduce Torsemide to 10mg every Wednesday, nd Wednesday Get updated labs.I27.20 Pulmonary hypertension, ejgiadsndhuZ80.0 Presence of cardiac acjmhlsnoT94.818 Encounter for other preprocedural examinationRecommendations:You may proceed with your upcoming right hip surgery. You are at moderate to high risk for complications given severe LV dysfunction, pulmonary hypertension recent RVSP 56mmHg. Functional Status Description No Information Available Mental Status Description No Information Available Referrals Description No Information Available
[2019-09-29] MEDS ORDERED: Norepinephrine VIAL* 1 MG/ML 4 ML VIAL ONE (08:36)
[2019-09-29] MEDS ORDERED: fentaNYL* 50 MCG/ML 2 ML VIAL (100 MCG VIAL) ONE ×2 (08:36→13:30)
[2019-09-29] MEDS ORDERED: Midazolam* 1 MG/ML 5 ML VIAL (5 MG) ONE (08:36)
[2019-09-29] MEDS ORDERED: KETAMINE HCL* 50 MG/ML 10 ML VIAL ONE (08:36)
[2019-09-29] MEDS ORDERED: ROPIVACAINE 5 MG/ML 30 ML BTL (0.5%) ONE (10:48)
[2019-09-29] MEDS ORDERED: HYDROmorphone INJ1* 1 MG/ML SYRINGE ONE ×2 (11:26→13:15)
[2019-09-29] MEDS ORDERED: Ketorolac INJ* 30 MG/ML 1 ML VIAL ONE (12:20)
[2019-09-29] MEDS ORDERED: Propofol* 10 MG/ML 20 ML BTL ONE (12:20)
[2019-09-29] MEDS ORDERED: Acetaminophen IV 1GM/100ML * 100 ML ONE (12:20)
--- NOTE | 2019-09-29 12:51 | OP ---
Operative Report - Blank - Operative Report Date of Operation: 09/29/19 Note: KEON KU 1945 Date Of Surgery: 09/29/19 Shae Rodrigues MD Pulmonary Function Technician: Jaimee LYMAN did help throughout the procedure with preparation of the hip, wound retraction, manipulation of the hip, and wound closure. Anesthesiologist: Dr. Cleaning Anesthesia Type: General Preoperative Diagnosis: Right severe degenerative osteoarthritis of the hip Postoperative Diagnosis: As above Procedure Performed: Right Total Hip Arthroplasty Complications: None Specimen: Femoral head and acetabular reamings sent to pathology. Hardware used: This is uncemented Alyson total hip arthroplasty hardware for the femur a accolade II size 4 with 127 neck angle femoral component, for the acetabulum a size 54E trident II tritanium cluster hole shell, one 15mm screw, for the insert a size 36E trident X3 polyethylene insert, and for the femoral head a size 36 + 2.5 ceramic biolox V40 femoral head. Brief history/Indication: KEON KU was known in clinic and had a history of severe right hip pain. He failed conservative treatment with anti- inflammatories, pain pills, intra-articular injections and physical therapy. He elected to undergo right total hip arthroplasty due to continued pain and decreased quality of life. Radiographs showed severe end stage osteoarthritis of the hip with bone on bone contact. Informed consent was obtained from the patient. He understood the risks of surgery included but were not limited to: bleeding, infection, damage to nearby structures, intraoperative fracture, nerve palsy, failure of the hardware, early loosening, stiffness or loss of motion, dislocation, leg length discrepancy, anesthesia complications, stroke, heart attack, blood clot and . He wished to proceed. Intra-Operative findings: Intraoperatively the patient was noted to have severe loss of cartilage of the acetabulum and femoral head. Description of the Procedure: KEON KU was identified in the preanesthesia unit. His right hip was marked as the correct operative side. Informed consent was signed and placed in the chart. The patient was taken to the operating room and placed under anesthesia without complication. A lucas catheter was placed. The patient was placed on the peg board with all bony prominences well padded. The right lower extremity was prepped and draped in the usual sterile fashion. Preoperative time -out was made to correctly identify the patient, side and site. Appropriate intraoperative antibiotics were given within one hour of incision. A standard posterior incision was made and carried sharply down to the lateral fascia. A new 10 blade was used to make an incision in the fascia in line with the skin incision. A charnley retractor was placed. The piriformis and conjoined tendons were identified and elevated off the posterolateral femur using electrocautery. These were tagged with number 5 Ethibond. Next electrocautery was used to make a posterolateral capsular flap and this was tagged with number 5 Ethibonds. The hip was carefully dislocated. Lesser trochanter to the center of the femoral head was measured at 67 mm. The oscillating saw was used to make the femoral neck cut. The femoral head was carefully removed. The femur was retracted anteriorly and the acetabular retractors were placed. Long-handled knife was used to sharply remove any remaining labrum from the acetabular rim. The acetabulum was sequentially reamed up to a size 54. A bleeding subchondral bone bed was obtained. A trial liner was placed and had excellent fit and stability. A 54E cup with one screw was placed and had excellent stability with appropriate anteversion and abduction angle. A size 36E liner was impacted into the acetabular shell. The liner was checked for stability and was stable. Next attention was turned to preparation of the femoral canal. A canal finder was used to enter the proximal femur. The femoral canal was sequentially broached up to a size 4 femoral broach trial. A trial neck and 36 + 2.5 trial femoral head was chosen. Lesser trochanter to center of the femoral head measurement was satisfactory. The hip was reduced and taken through a range of motion. The hip was stable in all positions with good soft tissue tension and appropriate leg lengths. The hip was dislocated and all trials were removed. The final implant chosen was a accolade II size 4. This stem was impacted into the femoral canal without difficulty. The stem was stable with appropriate anteversion. The femoral head chosen was a 36 + 2.5 ceramic head. The head was impacted onto the femoral neck without difficulty. The final lesser trochanter to center of the femoral head measurement was satisfactory. The hip was reduced and taken through a range of motion. The hip was stable in all positions with good soft tissue tension and appropriate leg lengths. The hip was copiously irrigated with sterile saline. The previously tagged capsule and tendons were repaired to the posterolateral femur through two trochanteric drill holes. The lateral fascia layer was closed using number 1 vicryls. The rest of the incision was closed in a layered fashion using 0 and 2-0 vicryls. The skin was closed using 3-0 monocryl suture and Dermabond. Sterile adaptic, 4x4s and paper tape was used to cover the incision. The patients anesthesia was reversed without difficulty. He was taken to the PACU in stable condition. Intended weight-bearing will be as tolerated with posterior hip precautions.
[2019-09-29] MEDS ORDERED: Ondansetron INJ* 2 MG/ML VIAL IV PRN (13:19)
[2019-09-29] MEDS ORDERED: Cyclobenzaprine TAB* 10 MG PO PRN (13:19)
[2019-09-29] MEDS ORDERED: Polyethylene Glycol 3350* 17 GM PACKET PO PRN (13:19)
[2019-09-29] MEDS ORDERED: traMADol TAB* 50 MG PO PRN (13:19)
[2019-09-29] MEDS ORDERED: Magnesium Hydroxide LIQ* 30 ML UDC PO PRN (13:19)
[2019-09-29] MEDS ORDERED: Temazepam CAP* 15 MG PO PRN (13:19)
[2019-09-29] MEDS ORDERED: Ondansetron ODT TAB* 4 MG PO PRN (13:19)
[2019-09-29] MEDS ORDERED: diPHENhydraMINE IV* 50 MG/ML 1 ml VIAL (BENADRYL) IV PRN (13:19)
[2019-09-29] MEDS ORDERED: diPHENhydraMINE PO* 25 MG PO PRN (13:19)
[2019-09-29] MEDS ORDERED: Morphine INJ* 2 MG/ML 1 ML SYRINGE (TWO MG - NEW SYRINGE VERSION) IV PRN (13:19)
[2019-09-29] MEDS ORDERED: Omeprazole CAP (NF) 20 MG CAP.DR PO PRN (13:24)
[2019-09-29] MEDS: fentaNYL* 50 MCG/ML 2 ML VIAL (100 MCG VIAL) IV PRN ×3 (13:32→13:45)
[2019-09-29] MEDS ORDERED: Torsemide TAB 10 MG PO SCH (16:00)
[2019-09-29] MEDS ORDERED: Pantoprazole TAB * 40 MG TAB PO PRN (16:00)
[2019-09-29] MEDS: oxyCODONE TAB* 5 MG TAB PO PRN (16:51)
[2019-09-29] MEDS: Lactated Ringers 1000 ML Bag* 1,000 ML IV SCH (16:53)
[2019-09-29] MEDS: ceFAZolin 1 GM ADVAN(*) 1 GM in NS 0.9% 50 ML* 50 ML IVPB SCH (19:25)
[2019-09-29] MEDS: Atorvastatin* 10 MG TAB PO SCH (21:10)
[2019-09-29] MEDS: Carvedilol TAB* 6.25 MG PO SCH (21:11)
[2019-09-29] MEDS: Docusate CAP* 100 MG PO SCH (21:11)
[2019-09-29] MEDS: oxyCODONE/Acetamin 5/325 MG* TAB PO PRN (21:12)
[2019-09-29] MEDS: Magnesium Hydroxide LIQ* 30 ML UDC PO SCH (21:13)
--- NOTE | 2019-09-29 21:47 | CONS ---
HOSPITAL MEDICINE CONSULTATION REPORT: DATE OF CONSULT: 09/29/19 PROVIDER: Sabina Murphy NP ATTENDING PHYSICIAN WHILE IN THE HOSPITAL: Dr. Shae Rodrigues. CONSULTING PHYSICIAN: Dr. Jean Pierre Moon (dictated by Sabina Murphy NP) . REASON FOR CONSULT: Co-management of chronic medical conditions. HISTORY OF PRESENT ILLNESS: Mr. Murray is a 74-year-old male with a past medical history significant for hypertension, hyperlipidemia, arrhythmia, sleep apnea, essential tremor, cardiomyopathy, who presented [place] [facility] [place] an elective right total hip arthroplasty with Dr. Rodrigues. Please see dictated H and P from NURA Lima for complete details. In brief, the patient had ongoing pain and failed conservative measures; therefore, opted to have a left total hip arthroplasty with Dr. Rodrigues. The patient reports no recent illnesses. He denies any chest pain. He does report an occasional shortness of breath with significant exertion. He denies any nausea, vomiting, diarrhea, or abdominal pain. Denies any gross hematuria or dysuria. He denies any focal weakness, sensory loss, visual complaints, dysphagia, arthralgias, myalgias, rashes, lesions, open sores, psychosis, or anxiety. Due to the patient's history of chronic medical conditions, Hospital Medicine was asked to help co-manage his care during this hospitalization. PAST MEDICAL HISTORY: 1. Hyperlipidemia. 2. Hypertension. 3. History of cardiac arrhythmias. 4. Sleep apnea - does not use CPAP. 5. Essential tremor. 6. Cardiomyopathy. PAST SURGICAL HISTORY: 1. Pacemaker placement. 2. Sigmoid resection. 3. Right rotator cuff surgery. HOME MEDICATIONS: Include: 1. Torsemide 10 mg Wednesday, Wednesday, and Wednesday. 2. Carvedilol 6.25 mg p.o. b.i.d. 3. Spironolactone 25 mg p.o. daily. 4. Pravastatin 40 mg p.o. daily. 5. Aspirin 81 mg p.o. daily. 6. Multivitamin 1 tablet p.o. daily. 7. Colace 100 mg as needed. 8. Metamucil at bedtime. ALLERGIES: No known drug allergies. FAMILY HISTORY: Twin brother with CHF. No reported history of diabetes. Father with lung cancer. Mother at the age of 92 due to dementia. SOCIAL HISTORY: The patient quit smoking 35 years ago. Reports rare alcohol use. Denies any illicit drug use. Surrogate decision maker in the event he is unable to make his own decisions is his . He is a full code. REVIEW OF SYSTEMS: An 11-point review of systems was completed. All pertinent positives were mentioned in the HPI, otherwise were negative. PHYSICAL EXAM: General: At this time, Mr. Murray is alert and oriented, sitting in the chair in his hospital room. He is in no acute distress. Vital Signs: Blood pressure 120/64, heart rate 63, respirations 18, O2 saturation 97% , temperature was 98.0. HEENT: Head is atraumatic, normocephalic. Eyes: EOMs are intact. Sclerae anicteric and not pale. Oral mucosa is moist. Neck is supple. Lungs are clear to auscultation bilaterally. No wheezes, rales, or rhonchi. Cardiac: S1, S2. Regular rate and rhythm. No rubs or gallops. Abdomen is soft and nontender. Bowel sounds are present x4. Extremities: He is able to move all 4 extremities. There is no clubbing or cyanosis. Pedal pulses are +2 bilaterally. Neurologic: He is awake, alert, oriented x3. His speech is clear. Thought process is intact. Skin: He does have a dressing dry and intact to his right hip. DIAGNOSTIC STUDIES/LAB DATA: CBC from 03/21/19: WBCs are 7.8, RBCs 4.34, hemoglobin 14.6, hematocrit is 43, platelet count is 171. Sodium 141, potassium 4.5, chloride 105, carbon dioxide was 29, this lab work is from . Anion gap is 7, creatinine 0.95, glucose was 97, calcium 9.9. T-bili was 0.60, ASTs were 17, ALTs were 20, alkaline phosphatase was 53. Urine was within normal limits from 09/22/19. IMPRESSION AND PLAN: Mr. Murray is a 74-year-old male with a past medical history significant for hyperlipidemia, hypertension, history of arrhythmias, sleep apnea, essential tremor, cardiomyopathy and systolic congestive heart failure history, who presented to [facility] for an elective right total hip arthroplasty with Dr. Rodrigues. Our recommendations are as follows: 1. Status post right total hip arthroplasty. Management per Orthopedics. PT/ OT per Orthopedics. Bowel regimen per Orthopedics. Pain management per Orthopedics and DVT prophylaxis per Orthopedics. 2. Hypertension. Continue on carvedilol 6.25 twice daily. 3. Cardiomyopathy. He should continue on torsemide, carvedilol and spironolactone as previously prescribed. The patient does have a history of congestive heart failure. I would use caution on excessive IV fluids. The patient gets his torsemide Wednesday, Wednesday, and Wednesday due to receiving IV fluids in the hospital. He may require an extra dose of torsemide during this hospitalization. 4. Hyperlipidemia. He should continue on pravastatin 40 mg p.o. daily. 5. FEN: He can have a heart healthy diet. 6. Code status: He is a full code. 7. DVT prophylaxis: As per Orthopedics. TIME SPENT: Time spent on this admission was 45 minutes, greater than half that time was spent at the bedside reviewing events leading thus far to his hospitalization, performing physical exam, and reviewing my plan of care. I have discussed this with my attending, Dr. Jean Pierre Moon; he is in agreement with my plan. SABINA MURPHY, CHRISTIE [id number]/[facility] #: [id number] TRACY
[2019-09-29] MEDS: Acetaminophen TAB* 325 MG PO SCH (22:12)
[2019-09-30] MEDS: oxyCODONE TAB* 5 MG TAB PO PRN (00:04)
[2019-09-30] MEDS: Lactated Ringers 1000 ML Bag* 1,000 ML IV SCH (02:22)
[2019-09-30] MEDS: oxyCODONE/Acetamin 5/325 MG* TAB PO PRN ×4 (02:28→17:17)
[2019-09-30] MEDS: ceFAZolin 1 GM ADVAN(*) 1 GM in NS 0.9% 50 ML* 50 ML IVPB SCH ×2 (03:25→11:30)
[2019-09-30 05:05] LABS: Hematocrit 35 % (42-52); Hemoglobin 11.7 g/dL (14.0-18.0); Mean Platelet Volume 8.7 fL (7.4-10.4); Platelet Count 101 10^3/uL (150-450)
[2019-09-30 05:21] LABS: BUN/Creatinine Ratio 25.3 (8-20); Calcium 8.4 mg/dL (8.6-10.3); EGFR African American 94.3 (>60); EGFR Non-African American 77.9 (>60)
[2019-09-30] MEDS: Acetaminophen TAB* 325 MG PO SCH ×3 (06:13→21:00)
[2019-09-30] MEDS: Docusate CAP* 100 MG PO SCH ×2 (09:33→20:37)
[2019-09-30] MEDS: Magnesium Hydroxide LIQ* 30 ML UDC PO SCH ×2 (09:33→20:39)
[2019-09-30] MEDS: Apixaban* 2.5 MG TAB PO SCH ×2 (09:33→20:38)
[2019-09-30] MEDS: Vitamin THERAPEUTIC TAB PO SCH (09:33)
--- NOTE | 2019-09-30 10:02 | PN ---
Progress Note - Progress Note Date of Service: 09/30/19 SOAP: Subjective: Pt. is alert, nad, mild-mod pain right hip. Objective: Laboratory Results - last 24 hr 09/30/19 09/30/19 04:46 04:46 Hgb 11.7 L Hct 35 L Plt Count 101 L MPV 8.7 Sodium 136 Potassium 4.0 Chloride 105 Carbon Dioxide 26 Anion Gap 5 BUN 24 Creatinine 0.95 Est GFR ( Amer) 94.3 Est GFR (Non-Af Amer) 77.9 BUN/Creatinine Ratio 25.3 H Glucose 107 H Calcium 8.4 L Vital Signs: Temp Pulse Resp BP Pulse Ox 98.6 F 60 18 105/47 96 09/30/19 07:45 09/30/19 08:17 09/30/19 09:40 09/30/19 08:17 09/30/19 07:45 RLE - dressing c/d/i, distally df/pf, full sens lt, 2+ dp pulse. Assessment: 74 yo M pod 1 s/p RTHA Plan: Pt. is doing well. Cont pt/ot wbat, post hip precautions eliquis bid plan to home tomorrow 09/30
[2019-09-30] MEDS: Carvedilol TAB* 6.25 MG PO SCH ×2 (10:10→20:39)
[2019-09-30] MEDS: Spironolactone TAB* 25 MG PO SCH (10:10)
--- NOTE | 2019-09-30 10:42 | PN ---
Subjective Date of Service: 09/30/19 Interval History: Pt reports that he has mild dizziness which is normal for him, "i just sit down when it happens". Reports that pain is 6/10 presently in right hip. Pt denies any chest pain, SOB, numbness or tingling. Nursing reports mild hypotension this AM. Upon reassessment at bedside patients BP found to be 116/68 Family History: Unchanged from Admission Social History: Unchanged from Admission Past Medical History: Unchanged from Admission Objective Active Medications: Acetaminophen (Tylenol Tab*) 975 mg PO Q8HR [facility] Last Admin: 09/30/19 06:13 Dose: Not Given Apixaban (Eliquis*) 2.5 mg PO BID [facility] Last Admin: 09/30/19 09:33 Dose: 2.5 mg Atorvastatin Calcium (Lipitor*) 10 mg PO BEDTIME [facility]; Protocol Last Admin: 09/29/19 21:10 Dose: 10 mg Bisacodyl (Dulcolax Supp*) 10 mg HI DAILY PRN PRN Reason: CONSTIPATION Carvedilol (Coreg Tab*) 6.25 mg PO BID [facility] Last Admin: 09/30/19 10:10 Dose: 6.25 mg Cyclobenzaprine HCl (Flexeril Tab*) 10 mg PO Q6H PRN PRN Reason: SPASMS Diphenhydramine HCl (Benadryl Iv*) 25 mg IV Q6H PRN PRN Reason: PRURITIS Diphenhydramine HCl (Benadryl Po*) 25 mg PO Q6H PRN PRN Reason: PRURITIS Docusate Sodium (Colace Cap*) 100 mg PO BID [facility] Last Admin: 09/30/19 09:33 Dose: 100 mg Cefazolin Sodium 1 gm/ Sodium (Chloride) 50 mls @ 200 mls/hr IVPB Q8H [facility] Stop: 09/30/19 11:44 Last Admin: 09/30/19 03:25 Dose: 200 mls/hr Lactated Ringer's (Lactated Ringers 1000 Ml Bag*) 1,000 mls @ 100 mls/hr IV PER RATE [facility] Last Admin: 09/30/19 02:22 Dose: 100 mls/hr Lactulose (Lactulose*) 30 ml PO BID PRN PRN Reason: CONSTIPATION Magnesium Hydroxide (Milk Of Magnesia Liq*) 30 ml PO BID [facility] Last Admin: 09/30/19 09:33 Dose: 30 ml Magnesium Hydroxide (Milk Of Magnesia Liq*) 30 ml PO Q6H PRN PRN Reason: CONSTIPATION Morphine Sulfate (Morphine Inj (Syringe))*) 2 mg IV Q4H PRN PRN Reason: Pain - Unrelieved Multivitamins (Theragran Tab*) 1 tab PO DAILY [facility] Last Admin: 09/30/19 09:33 Dose: 1 tab Ondansetron HCl (Zofran Inj*) 4 mg IV Q6H PRN PRN Reason: NAUSEA Ondansetron HCl (Zofran Odt Tab*) 4 mg PO Q6H PRN PRN Reason: NAUSEA Oxycodone HCl (Roxycodone Tab*) 10 mg PO Q4H PRN PRN Reason: Pain - Breakthrough Last Admin: 09/30/19 00:04 Dose: 10 mg Oxycodone/Acetaminophen (Percocet 5/325 Tab*) 1 tab PO Q4H PRN PRN Reason: PAIN - MODERATE Last Admin: 09/30/19 02:28 Dose: 1 tab Oxycodone/Acetaminophen (Percocet 5/325 Tab*) 2 tab PO Q4H PRN PRN Reason: PAIN - SEVERE Last Admin: 09/30/19 06:26 Dose: 2 tab Pantoprazole Sodium (Protonix Tab*) 40 mg PO DAILY PRN PRN Reason: ACID REFLUX Polyethylene Glycol/Electrolytes (Miralax (17 Gm Dose Ruben)) 17 gm PO DAILY PRN PRN Reason: Constipation Spironolactone (Aldactone Tab*) 25 mg PO QAM [facility] Last Admin: 09/30/19 10:10 Dose: 25 mg Temazepam (Restoril Cap*) 15 mg PO BEDTIME PRN PRN Reason: INSOMNIA Torsemide (Torsemide) 10 mg PO MoWeFr@0900 [facility] Last Admin: 09/29/19 16:53 Dose: Not Given Tramadol HCl (Ultram*) 50 mg PO Q6H PRN PRN Reason: PAIN - MODERATE Last Admin: 09/30/19 09:40 Dose: 50 mg Vital Signs - 8 hr 09/30/19 09/30/19 09/30/19 02:53 03:32 04:32 Temperature 98.3 F Pulse Rate 51 Respiratory 16 17 16 Rate Blood Pressure 115/58 (mmHg) O2 Sat by Pulse 98 Oximetry 09/30/19 09/30/19 09/30/19 06:26 07:45 08:00 Temperature 98.6 F Pulse Rate 63 Respiratory 16 17 18 Rate Blood Pressure 97/51 (mmHg) O2 Sat by Pulse 96 Oximetry 09/30/19 09/30/19 09/30/19 08:17 08:41 09:40 Temperature Pulse Rate 60 Respiratory 18 18 Rate Blood Pressure 105/47 (mmHg) O2 Sat by Pulse Oximetry 09/30/19 10:08 Temperature Pulse Rate Respiratory Rate Blood Pressure 116/68 (mmHg) O2 Sat by Pulse Oximetry Oxygen Devices in Use Now: None Appearance: Elderly gentleman of average body composition sitting up in chair chatting on cell phone. Does not appear to be in any distress. Eyes: No Scleral Icterus Ears/Nose/Mouth/Throat: NL Teeth, Lips, Gums, Clear Oropharnyx, Mucous Membranes Moist Neck: NL Appearance and Movements; NL JVP, Trachea Midline Respiratory: Symmetrical Chest Expansion and Respiratory Effort, Clear to Auscultation Cardiovascular: NL Sounds; No Murmurs; No JVD, RRR, - - +1 pitting edema bilateral lower extrems from ankles into feet Abdominal: NL Sounds; No Tenderness; No Distention Extremities: - - +1 pitting edema to bilat feet starting ankles. Left toes have mild bluish color, pedal pulse is palpable. 5/5 strength in upper extrems, equal senior user experience architect. Equal flexion and extension with slightly decreased strength in right foot due to pain in right hip when flexing. Skin: No Rash or Ulcers Neurological: Alert and Oriented x 3, NL Sensation, NL Muscle Strength and Tone Result Diagrams: 09/30/19 04:46 09/30/19 04:46 Assess/Plan/Problems-Billing Assessment: - Patient Problems (1) Status post total replacement of right hip Current Visit: Yes Comment: Managed by Orthopedics (2) HTN (hypertension) Comment: -Pt was found to mildly hypotensive this AM 105/47. Reassessment of BP was 116/ 68 asymptomatic presently. Pt does report frequent episodes of dizziness when changing positions prior to surgical procedure and he is aware that he must sit when experiencing. -Coreg and spironolactone administered as prescribed (3) Cardiomyopathy Current Visit: Yes Comment: -Managed well with coreg and spironolactone (4) Hyperlipidemia Comment: -Continue atorvastatin (5) DVT prophylaxis Current Visit: Yes Comment: -Managed by Orthopedics -Apixiban
[2019-09-30] MEDS: Atorvastatin* 10 MG TAB PO SCH (20:37)
[2019-10-01] MEDS: oxyCODONE/Acetamin 5/325 MG* TAB PO PRN ×4 (04:07→16:54)
[2019-10-01] MEDS: Acetaminophen TAB* 325 MG PO SCH ×2 (04:39→13:14)
[2019-10-01 06:08] LABS: Hematocrit 34 % (42-52); Hemoglobin 11.6 g/dL (14.0-18.0); Mean Platelet Volume 8.9 fL (7.4-10.4); Platelet Count 99 10^3/uL (150-450)
[2019-10-01] MEDS: Docusate CAP* 100 MG PO SCH (08:41)
[2019-10-01] MEDS: Apixaban* 2.5 MG TAB PO SCH (08:41)
[2019-10-01] MEDS: Vitamin THERAPEUTIC TAB PO SCH (08:41)
[2019-10-01] MEDS: Magnesium Hydroxide LIQ* 30 ML UDC PO SCH (08:41)
[2019-10-01] MEDS: Spironolactone TAB* 25 MG PO SCH (10:13)
[2019-10-01] MEDS: Carvedilol TAB* 6.25 MG PO SCH (10:14)
--- NOTE | 2019-10-01 12:05 | PN ---
Subjective Date of Service: 10/01/19 Interval History: Mr. Murray states his R hip is sore and ambulation is still painful. He reports muscle spasms that were relieved with muscle relaxer. He reports that he has been doing exercises in his chair. Patient reports that he has a h/o chronic dizziness/lightheadedness. He has been working with cardiology to develop a diuretic routine that resolves these symptoms; he has a follow up appointment scheduled at this time. Family History: Unchanged from Admission Social History: Unchanged from Admission Past Medical History: Unchanged from Admission Objective Active Medications: Acetaminophen (Tylenol Tab*) 975 mg PO Q8HR [facility] Last Admin: 10/01/19 04:39 Dose: Not Given Apixaban (Eliquis*) 2.5 mg PO BID [facility] Last Admin: 10/01/19 08:41 Dose: 2.5 mg Atorvastatin Calcium (Lipitor*) 10 mg PO BEDTIME [facility]; Protocol Last Admin: 09/30/19 20:37 Dose: 10 mg Bisacodyl (Dulcolax Supp*) 10 mg [place] DAILY PRN PRN Reason: CONSTIPATION Carvedilol (Coreg Tab*) 6.25 mg PO BID [facility] Last Admin: 10/01/19 10:14 Dose: 6.25 mg Cyclobenzaprine HCl (Flexeril Tab*) 10 mg PO Q6H PRN PRN Reason: SPASMS Last Admin: 09/30/19 14:15 Dose: 10 mg Diphenhydramine HCl (Benadryl Iv*) 25 mg IV Q6H PRN PRN Reason: PRURITIS Diphenhydramine HCl (Benadryl Po*) 25 mg PO Q6H PRN PRN Reason: PRURITIS Docusate Sodium (Colace Cap*) 100 mg PO BID [facility] Last Admin: 10/01/19 08:41 Dose: 100 mg Lactated Ringer's (Lactated Ringers 1000 Ml Bag*) 1,000 mls @ 100 mls/hr IV PER RATE [facility] Last Admin: 09/30/19 02:22 Dose: 100 mls/hr Lactulose (Lactulose*) 30 ml PO BID PRN PRN Reason: CONSTIPATION Magnesium Hydroxide (Milk Of Magnesia Liq*) 30 ml PO BID [facility] Last Admin: 10/01/19 08:41 Dose: 30 ml Magnesium Hydroxide (Milk Of Magnesia Liq*) 30 ml PO Q6H PRN PRN Reason: CONSTIPATION Morphine Sulfate (Morphine Inj (Syringe))*) 2 mg IV Q4H PRN PRN Reason: Pain - Unrelieved Multivitamins (Theragran Tab*) 1 tab PO DAILY [facility] Last Admin: 10/01/19 08:41 Dose: 1 tab Ondansetron HCl (Zofran Inj*) 4 mg IV Q6H PRN PRN Reason: NAUSEA Ondansetron HCl (Zofran Odt Tab*) 4 mg PO Q6H PRN PRN Reason: NAUSEA Oxycodone HCl (Roxycodone Tab*) 10 mg PO Q4H PRN PRN Reason: Pain - Breakthrough Last Admin: 09/30/19 00:04 Dose: 10 mg Oxycodone/Acetaminophen (Percocet 5/325 Tab*) 1 tab PO Q4H PRN PRN Reason: PAIN - MODERATE Last Admin: 09/30/19 02:28 Dose: 1 tab Oxycodone/Acetaminophen (Percocet 5/325 Tab*) 2 tab PO Q4H PRN PRN Reason: PAIN - SEVERE Last Admin: 10/01/19 08:41 Dose: 2 tab Pantoprazole Sodium (Protonix Tab*) 40 mg PO DAILY PRN PRN Reason: ACID REFLUX Polyethylene Glycol/Electrolytes (Miralax (17 Gm Dose Ruben)) 17 gm PO DAILY PRN PRN Reason: Constipation Spironolactone (Aldactone Tab*) 25 mg PO QAM [facility] Last Admin: 10/01/19 10:13 Dose: Not Given Temazepam (Restoril Cap*) 15 mg PO BEDTIME PRN PRN Reason: INSOMNIA Torsemide (Torsemide) 10 mg PO MoWeFr@0900 [facility] Last Admin: 09/29/19 16:53 Dose: Not Given Tramadol HCl (Ultram*) 50 mg PO Q6H PRN PRN Reason: PAIN - MODERATE Last Admin: 09/30/19 09:40 Dose: 50 mg Vital Signs: Temp Pulse Resp BP Pulse Ox 98.5 F 60 18 99/50 97 10/01/19 14:50 10/01/19 14:50 10/01/19 14:50 10/01/19 14:50 10/01/19 14:50 Oxygen Devices in Use Now: None Appearance: Mr. Murray is an overweight, elderly white male who is sitting up in chair with LE elevated. He appears mildly uncomfortable, moreso with movements. Eyes: No Scleral Icterus, PERRLA Ears/Nose/Mouth/Throat: NL Teeth, Lips, Gums, Clear Oropharnyx, Mucous Membranes Moist Neck: NL Appearance and Movements; NL JVP, Trachea Midline, No Thyroid Enlargement, Masses Respiratory: Symmetrical Chest Expansion and Respiratory Effort, Clear to Auscultation Cardiovascular: NL Sounds; No Murmurs; No JVD, RRR, No Edema Abdominal: NL Sounds; No Tenderness; No Distention, No Hepatosplenomegaly Extremities: No Edema, No Clubbing, Cyanosis, - - CDI drssing in place to R hip ; decreased, painful ROM in R hip; sensation intact; pulses palpable Neurological: Alert and Oriented x 3 Result Diagrams: 10/01/19 05:39 09/30/19 04:46 Assess/Plan/Problems-Billing Assessment: 74 yom PMHx CM, HTN, HLD, SOPHIE who presented to [facility] for an elective R MAYELA. - Patient Problems (1) Status post total replacement of right hip Comment: -management per ortho team -PT/OT -pain management, bowel regimen (2) Cardiomyopathy Comment: -EF 30-35%, grade II diastolic dysfunction 09/2019 -follows with [facility] at [facility] -he c/o dizziness/LH for "years" and has been working with [facility], Dr. Us to balance symptoms with treatment; at this time, recommendations are to continue current medication regimen of carvedilol and spironolactone daily with torsemide M,W,F -recommend close follow up with cardiology in 1-2 weeks -also recommend extreme caution with ambulation to avoid falls (3) HTN (hypertension) Comment: -SBP 90-110's -continue home carvedilol, diuretic regimen -recommend continued f/u with cardiology for further managment of medications ( see above) (4) Hyperlipidemia Comment: -continue atorvastatin (5) DVT prophylaxis Comment: -apixaban per ortho team (6) Full code status Status and Disposition: Inpatient. Discharge per primary team; medically cleared for discharge.
--- NOTE | 2019-10-01 13:22 | PN ---
Progress Note - Progress Note Date of Service: 10/01/19 SOAP: Subjective: Pt seen and examined sitting in a chair. Complains of right hip pain. Pain medication helps. SOB at baseline. Denies CP, F/C Vital Signs: Temp Pulse Resp BP Pulse Ox 99.0 F 62 18 105/45 99 10/01/19 12:23 10/01/19 12:23 10/01/19 12:27 10/01/19 12:23 10/01/19 12:23 Laboratory Last Values Hgb 11.6 g/dL (14.0-18.0) L 10/01/19 05:39 Hct 34 % (42-52) L 10/01/19 05:39 Plt Count 99 10^3/uL (150-450) L 10/01/19 05:39 MPV 8.9 fL (7.4-10.4) 10/01/19 05:39 Sodium 136 mmol/L (135-145) 09/30/19 04:46 Potassium 4.0 mmol/L (3.5-5.0) 09/30/19 04:46 Chloride 105 mmol/L (101-111) 09/30/19 04:46 Carbon Dioxide 26 mmol/L (22-32) 09/30/19 04:46 Anion Gap 5 mmol/L (2-11) 09/30/19 04:46 BUN 24 mg/dL (6-24) 09/30/19 04:46 Creatinine 0.95 mg/dL (0.67-1.17) 09/30/19 04:46 Est GFR ( Amer) 94.3 (>60) 09/30/19 04:46 Est GFR (Non-Af Amer) 77.9 (>60) 09/30/19 04:46 BUN/Creatinine Ratio 25.3 (8-20) H 09/30/19 04:46 Glucose 107 mg/dL (70-100) H 09/30/19 04:46 Calcium 8.4 mg/dL (8.6-10.3) L 09/30/19 04:46 Objective: A&O x3, NAD Dressing C/D/I, Calves soft and nontender, No edema, NVI distally. Assessment: s/p right MAYELA POD#2 Plan: OOB, PT/OT WBAT Pain control DVT prophylaxis - Eliquis D/C home today or tomorrow when medically stable
[2019-10-01 14:51] VITALS: BP 99/50
--- NOTE | 2019-10-01 17:04 | DS ---
Orthopedic Discharge Summary - Discharge Summary Date of Admission:09/29/19 Date of Discharge: 10/01/19 Date of Surgery: 09/29/19 Attending Orthopedic Provider: Shae Rodrigues MD Pre-operative Diagnosis: Severe right hip osteoarthritis Operative Procedure: Right total hip replacement Disposition of Patient:Home Home care vs Outpatient services: Home care Condition of Patient: Stable Pain medication RX at discharge: Percocet 5/325mg DVT prophylaxis RX at discharge: Eliquis 2.5mg BID History: KEON KU is a 74 year old M with years of increasingly severe right hip pain. Patient has failed conservative management and has elected to undergo a Right total hip replacement Hospital Course: KEON was admitted to [facility] on 09/29/19. Patient underwent a Right total hip replacement without complication followed by a brief recovery in PACU and transfer to the Short Stay Surgical Unit in stable condition. Our hospitalist service, physical therapy and occupational therapy also participated in this patients care. Post-op day 1: patient was alert and in no acute distress. Dressing was clean, dry and intact. Operative extremity dorsiflexion and plantarflexion intact, sensation intact to light touch distally, DP2+. Post-op day two: dressing was changed, incision was clean , dry and intact. Patient was deemed to be medically and orthopedically stable for discharge. Physical therapy goals were met. He was discharged home on in a stable condition. Home Medications Medication Instructions Recorded Confirmed Type Aspirin 81 mg CHEW TAB* 81 mg PO QAM 12/31/14 09/29/19 History Multivitamins/Minerals TAB* 1 tab PO QAM 12/31/14 09/29/19 History [Theragran/minerals TAB*] Pravastatin Sodium [Pravachol] 40 mg PO BEDTIME 12/31/14 09/29/19 History Carvedilol TAB* [Coreg TAB*] 6.25 mg PO BID 10/29/15 09/29/19 History Spironolactone TAB* [Aldactone TAB 25 mg PO QAM 10/29/15 09/29/19 History 25 MG*] Torsemide TAB* [Demadex 20 MG*] 10 mg PO MOWEFR 10/29/15 09/29/19 History Docusate Sodium [Colace] 200 mg PO BEDTIME PRN 03/21/19 09/29/19 History Omeprazole CAP (NF) [Prilosec CAP* 20 mg PO DAILY PRN 03/21/19 09/29/19 History 20 MG] Polyethylene Glycol 3350* [Miralax 17 gm PO DAILY PRN 03/21/19 09/29/19 History (17 GM DOSE AMADO)] Acetaminophen [Acetaminophen Extra 2 tab PO BEDTIME PRN 09/22/19 09/29/19 History Strength] Acetaminophen/Diphenhydramine 2 tab PO BEDTIME PRN 09/22/19 09/29/19 History [Acetaminophen Pm Caplet] Apixaban* [Eliquis*] 2.5 mg PO BID tab 10/01/19 Rx Docusate CAP* [Colace Cap*] 100 mg PO BID cap 10/01/19 Rx oxyCODONE/Acetamin 5/325 MG* 1 tab PO Q4H PRN tab 10/01/19 Rx [Percocet 5/325 TAB*] oxyCODONE/Acetamin 5/325 MG* 2 tab PO Q4H PRN tab 10/01/19 Rx [Percocet 5/325 TAB*] Discharge Instructions following Orthopedic Surgery: Activity: * Weight Bearing as tolerated * Continue physical therapy and occupational therapy exercises as shown * If you have elected to have home physical therapy, continue therapy exercises at home. If you have elected outpatient physical therapy, please start therapy as an outpatient right away. Hip replacements: Continue Hip Precautions- do not cross legs or bend greater than 90 degrees/squat Wound care: * OK to shower on post-op day 3, no bathing, swimming, or submerging wound. * Use gentle soap, pat dry. Cover with gauze, EDUAR wrap or tape. * If you elected to have a visiting home nurse, they will perform wound checks. Call Orthopedic office for: * Increased drainage * Redness * Increased pain * Fever Go to ER with shortness of breath or chest pain. Diet: * Regular diet * Increase fluids and fiber to prevent constipation. * Continue to use stool softeners, call office if no bowel motion within 48 hours. Medications See Home Medication List in your packet for medications that you should take after discharge. DVT Prophylaxis: Eliquis Dosin.5 mg, 1 tab every 12 hours x 30 days Pain Control: Percocet 5/325 mg 1 tab for moderate pain and 2 tabs for severe pain by mouth every 4 hours as needed. Maximum of 10 tabs per day. Hold for sedation , wean off as soon as pain allows Please note that Percocet contains Tylenol (acetaminophen). Maximum daily dose of Tylenol is 4000 mg from all sources. Antibiotics are required prior to any dental work. FOLLOW UP: Follow up with Dr. Rodrigues Within 10-14 days, call for appointment Please call our office with any questions or concerns ([phone])
== END 2019-10-01 18:50 | disposition home health service (06) | DRG 470 ==
LOC: AA 08:04 → SSU 13:19
PROVIDERS: ADMIT Orthopaedic Surgery Adult Reconstructive Orthopaedic Surgery; ATTEND Orthopaedic Surgery Adult Reconstructive Orthopaedic Surgery
PROC: 0SR904A Replacement of Right Hip Joint with Ceramic on Polyethylene Synthetic Substitute, Uncemented, Open Approach (ICD-10-PCS; principal; 2019-09-29 10:00)
DX: M16.11 Unilateral primary osteoarthritis, right hip (principal); I50.22 Chronic systolic (congestive) heart failure; I42.8 Other cardiomyopathies; E78.5 Hyperlipidemia, unspecified; G25.0 Essential tremor; I11.0 Hypertensive heart disease with heart failure; K21.9 Gastro-esophageal reflux disease without esophagitis; I27.20 Pulmonary hypertension, unspecified; I95.9 Hypotension, unspecified; G47.33 Obstructive sleep apnea (adult) (pediatric); E78.00 Pure hypercholesterolemia, unspecified; Z95.0 Presence of cardiac pacemaker; Z79.82 Long term (current) use of aspirin; Z79.899 Other long term (current) drug therapy; Z87.891 Personal history of nicotine dependence
CPT/HCPCS: 36415; 80048; 85014; 85018; 85049; 88304; 88311; 93005; A9270-GY; C1713; C1776; J0690; J1170; J1885; J2250; J2704; J2795; J3010; J8540

== ENCOUNTER 2020-07-23 12:15 | Inpatient (IN) ==
[2020-07-23 14:27] LABS: ABS Eosinophils 0.1 10^3/ul (0-0.6); ABS Lymphocytes 1.4 10^3/ul (1.0-4.8); ABS Monocytes 0.4 10^3/ul (0-0.8); ABS Neutrophils 4.2 10^3/ul (1.5-7.7); Eosinophil % 1.6 %; Hematocrit 41 % (42-52); Hemoglobin 13.9 g/dL (14.0-18.0); Lymphocyte % 23.7 %; Mean Corpuscular HGB Conc 33 g/dL (31-36); Mean Corpuscular Hemoglobin 33 pg (27-31); Mean Corpuscular Volume 99 fL (80-94); Mean Platelet Volume 8.5 fL (7.4-10.4); Platelet Count 171 10^3/uL (150-450); Red Blood Count 4.18 10^6 /uL (4.18-5.48); Red Cell Distribution Width 14 % (10-15); White Blood Count 6.1 10^3/uL (3.5-10.8)
[2020-07-23 14:28] LABS: Urine Appearance Clear; Urine Bilirubin Negative (Negative); Urine Blood Negative (Negative); Urine Color Yellow; Urine Glucose Negative (Negative); Urine Ketones Negative (Negative); Urine Nitrite Negative (Negative); Urine Protein Negative (Negative); Urine Specific Gravity 1.013 (1.010-1.030); Urine Urobilinogen Negative (Negative)
[2020-07-23 14:34] LABS: Activated Partial Thrombo Time 34.1 seconds (26.0-38.0); INR 1.16 (0.82-1.09)
[2020-07-23 14:41] LABS: Influenza A Molecular Negative (Negative); Influenza B Molecular Negative (Negative)
[2020-07-23 14:48] LABS: Troponin I 0.02 ng/mL (<0.03)
[2020-07-23 14:52] LABS: Albumin 4.1 g/dL (3.2-5.2); Albumin/Globulin Ratio 1.6 (1-3); C Reactive Protein 8.29 mg/L (<8.01); Calcium 9.3 mg/dL (8.6-10.3); EGFR African American 104.1 (>60); Globulin 2.5 g/dL (2-4); Potassium 4.1 mmol/L (3.5-5.0); Total Bilirubin 0.9 mg/dL (0.2-1.0); Total Protein 6.6 g/dL (6.4-8.9)
[2020-07-23 15:14] LABS: Ferritin 111.9 ng/mL (24-336)
[2020-07-23 17:01] LABS: Magnesium 2.3 mg/dL (1.9-2.7)
[2020-07-23 17:57] LABS: Troponin I 0.03 ng/mL (<0.03)
[2020-07-24 06:01] LABS: ABS Eosinophils 0.1 10^3/ul (0-0.6); ABS Lymphocytes 1.6 10^3/ul (1.0-4.8); ABS Monocytes 0.4 10^3/ul (0-0.8); ABS Neutrophils 3.3 10^3/ul (1.5-7.7); Eosinophil % 2.2 %; Hematocrit 38 % (42-52); Hemoglobin 12.9 g/dL (14.0-18.0); Lymphocyte % 28.8 %; Mean Corpuscular HGB Conc 34 g/dL (31-36); Mean Corpuscular Hemoglobin 33 pg (27-31); Mean Corpuscular Volume 99 fL (80-94); Mean Platelet Volume 8.7 fL (7.4-10.4); Nucleated Red Blood Cells % 0.1; Platelet Count 158 10^3/uL (150-450); Red Blood Count 3.87 10^6 /uL (4.18-5.48); Red Cell Distribution Width 14 % (10-15); White Blood Count 5.4 10^3/uL (3.5-10.8)
[2020-07-24 06:04] LABS: ALT 21 U/L (7-52); AST 18 U/L (13-39); Albumin 3.4 g/dL (3.2-5.2); Albumin/Globulin Ratio 1.5 (1-3); Alkaline Phosphatase 43 U/L (34-104); Anion Gap 6 mmol/L (2-11); BUN/Creatinine Ratio 22.2 (8-20); Blood Urea Nitrogen 22 mg/dL (6-24); CO2 Carbon Dioxide 26 mmol/L (22-32); Calcium 8.9 mg/dL (8.6-10.3); Chloride 107 mmol/L (101-111); EGFR African American 89.7 (>60); EGFR Non-African American 74.1 (>60); Globulin 2.3 g/dL (2-4); Glucose 90 mg/dL (70-100); Potassium 4.4 mmol/L (3.5-5.0); Sodium 139 mmol/L (135-145); Total Protein 5.7 g/dL (6.4-8.9)
[2020-07-24] MEDS: Aspirin EC 81 mg TAB.EC (enteric coated) PO SCH (09:06)
[2020-07-24] MEDS: Polyethylene Glycol 3350 17 GM PACKET PO SCH (09:06)
[2020-07-24] MEDS: Vitamin THERAPEUTIC TAB PO SCH (09:06)
[2020-07-24 10:32] LABS: Troponin I 0.03 ng/mL (<0.03)
[2020-07-24 12:20] LABS: Folate > 20.00 ng/mL (>3.99)
[2020-07-24 12:21] LABS: Vitamin B12 356 pg/mL (180-914)
[2020-07-24] MEDS ORDERED: Aminophylline 25 MG/ML VIAL ONE (13:22)
[2020-07-24] MEDS ORDERED: Regadenoson 0.4 MG/5 ML SYRINGE ONE (13:22)
[2020-07-25 06:23] LABS: BUN/Creatinine Ratio 17.9 (8-20); Calcium 8.9 mg/dL (8.6-10.3); EGFR African American 82.9 (>60); EGFR Non-African American 68.5 (>60); Magnesium 2.1 mg/dL (1.9-2.7); Potassium 4.2 mmol/L (3.5-5.0)
[2020-07-25] MEDS: Vitamin THERAPEUTIC TAB PO SCH (10:16)
[2020-07-25] MEDS: Polyethylene Glycol 3350 17 GM PACKET PO SCH (10:18)
[2020-07-25] MEDS: Aspirin EC 81 mg TAB.EC (enteric coated) PO SCH (10:21)
[2020-07-25 11:58] VITALS: BP 108/64
== END 2020-07-25 17:20 | disposition home or self-care (01) | DRG 308 ==
LOC: ED 12:15 → MED 12:15 → MEDTELE 07-25 07:28
PROVIDERS: ADMIT Hospitalist; ATTEND Internal Medicine

== ENCOUNTER 2024-09-06 10:14 | Inpatient (IN) ==
[2024-09-06 10:46] LABS: ABS Basophils 0.1 10^3/uL (0.0-0.1); ABS Eosinophils 0.1 10^3/uL (0.0-0.5); ABS Lymphocytes 1.4 10^3/uL (1.0-4.8); ABS Monocytes 0.4 10^3/uL (0.0-1.1); ABS Neutrophils 3.5 10^3/uL (1.5-7.6); ABS Nucleated RBC 0.01 10^3/ul; Eosinophil % 2.4 %; Hemoglobin 16.4 g/dL (13.2-16.3); Lymphocyte % 25.2 %; Mean Corpuscular Hemoglobin 33.6 pg (27-33); Mean Corpuscular Hgb Conc 34.2 g/dL (31-36); Mean Corpuscular Volume 98.2 fL (80-97); Mean Platelet Volume 8.9 fL (7.5-11.2); Nucleated Red Blood Cells % 0.1 %/100WBC (0.0-0.8); Platelet Count 138 10^3/uL (150-450); Red Blood Count 4.89 10^6/uL (4.06-5.63); Red Cell Distribution Width 13.6 % (12-17); White Blood Count 5.5 10^3/uL (3.6-10.2)
[2024-09-06 10:54] LABS: INR 1.52 (0.85-1.14)
[2024-09-06 11:35] LABS: Albumin 3.9 g/dL (3.5-5.7); Albumin/Globulin Ratio 1.4 (1-3); Creatinine, Serum 1.08 mg/dL (0.67-1.17); Globulin 2.7 g/dL (2-4); Potassium 3.9 mmol/L (3.5-5.0); Total Bilirubin 1.4 mg/dL (0.2-1.0); Total Protein 6.6 g/dL (6.4-8.9); eGFR CKD-EPI 70.7 (>60)
[2024-09-06 12:21] LABS: High Sensitivity Troponin 1 Hr 33 pg/mL (<20)
[2024-09-06] MEDS: NS 0.9% 1000 ml BAG 500 ML IV SCH (16:30)
[2024-09-06 16:42] LABS: C Reactive Protein 88.04 mg/L (<8.01)
[2024-09-06] MEDS: Remdesivir 100 mg Vial 200 MG in NS 0.9% 250 ml 210 ML IV ONE (17:16)
[2024-09-07 06:40] LABS: ABS Lymphocytes 0.8 10^3/uL (1.0-4.8); ABS Monocytes 0.1 10^3/uL (0.0-1.1); Hematocrit 43.2 % (38-53); Lymphocyte % 20.4 %; Mean Corpuscular Hemoglobin 33.5 pg (27-33); Mean Corpuscular Hgb Conc 34.7 g/dL (31-36); Mean Corpuscular Volume 96.6 fL (80-97); Mean Platelet Volume 9.1 fL (7.5-11.2); Nucleated Red Blood Cells % 0.1 %/100WBC (0.0-0.8); Platelet Count 134 10^3/uL (150-450); Red Blood Count 4.47 10^6/uL (4.06-5.63); Red Cell Distribution Width 13.2 % (12-17); White Blood Count 3.8 10^3/uL (3.6-10.2)
[2024-09-07 06:53] LABS: INR 1.29 (0.85-1.14)
[2024-09-07 07:25] LABS: Albumin 3.6 g/dL (3.5-5.7); Albumin/Globulin Ratio 1.5 (1-3); Calcium 8.6 mg/dL (8.6-10.3); Creatinine, Serum 0.87 mg/dL (0.67-1.17); Globulin 2.4 g/dL (2-4); Magnesium 2.3 mg/dL (1.9-2.7); Potassium 4.6 mmol/L (3.5-5.0); Total Bilirubin 0.7 mg/dL (0.2-1.0); eGFR CKD-EPI 88.9 (>60)
[2024-09-07] MEDS: Remdesivir 100 mg Vial 100 MG in NS 0.9% 250 ml 230 ML IV SCH (20:05)
[2024-09-08 07:03] LABS: ABS Monocytes 0.3 10^3/uL (0.0-1.1); ABS Neutrophils 8.4 10^3/uL (1.5-7.6); Hematocrit 42.7 % (38-53); Hemoglobin 14.7 g/dL (13.2-16.3); Lymphocyte % 10.1 %; Mean Corpuscular Hemoglobin 33.5 pg (27-33); Mean Corpuscular Hgb Conc 34.4 g/dL (31-36); Mean Corpuscular Volume 97.4 fL (80-97); Mean Platelet Volume 8.9 fL (7.5-11.2); Platelet Count 145 10^3/uL (150-450); Red Blood Count 4.39 10^6/uL (4.06-5.63); Red Cell Distribution Width 13.6 % (12-17); White Blood Count 9.7 10^3/uL (3.6-10.2)
[2024-09-08 07:10] LABS: INR 1.21 (0.85-1.14)
[2024-09-08 07:41] LABS: Albumin 3.6 g/dL (3.5-5.7); Albumin/Globulin Ratio 1.6 (1-3); Calcium 8.7 mg/dL (8.6-10.3); Creatinine, Serum 0.82 mg/dL (0.67-1.17); Globulin 2.3 g/dL (2-4); Potassium 4.6 mmol/L (3.5-5.0); Total Bilirubin 0.6 mg/dL (0.2-1.0); Total Protein 5.9 g/dL (6.4-8.9); eGFR CKD-EPI 90.5 (>60)
[2024-09-08 09:50] VITALS: BP 108/73
== END 2024-09-08 16:00 | disposition home or self-care (01) | DRG 177 ==
LOC: EDHOLD 10:14 → ED 10:14 → SUATTDRO 15:31 → EDHOLD 16:35 → MED 17:08 → SUATTDRO 09-07 13:43
PROVIDERS: ADMIT Student in an Organized Health Care Education/Training Program; ATTEND Student in an Organized Health Care Education/Training Program